=== PATIENT | female | born 1965 | race African-American/Black ===

== ENCOUNTER 2016-07-10 12:28 | Inpatient (IN) ==
[2016-07-10] MEDS ORDERED: ONDANSETRON 4 MG/2 ML VIAL IV STA (13:16)
[2016-07-10] MEDS ORDERED: ASPIRIN 325 MG TABLET PO STA (13:16)
[2016-07-10] MEDS ORDERED: ALBUTEROL/IPRATROPIUM 3 ML NEB RESP TX STA (13:16)
[2016-07-10 13:29] LABS: Basophils % 0.5 % (0.0-0.8); Eosinophils # 0.5 10*3/uL (0.0-0.87); Eosinophils % 8.1 % (0.00-10.9); Hematocrit 44.2 VOL% (35.7-47.0); Hemoglobin 15.4 GM/DL (12.0-16.0); Immature Granulocytes % 0.3 %; Immature Granulocytes Absolute 0.02 #; Lymphocytes # 2.6 10*3/uL (1.4-4.0); Lymphocytes % 40.4 % (21.3-54.2); Mean Corpuscular HGB Conc 34.8 GM/DL (32-36); Mean Corpuscular Hemoglobin 29 PG (27-34); Mean Platelet Volume 11.6 FL (9.6-12.0); Monocytes # 0.7 10*3/uL (0.11-0.8); Monocytes % 11.2 % (1.7-12.7); Neutrophils # 2.6 10*3/uL (1.4-7.4); Neutrophils % 39.5 % (38.7-73.9); Platelet Count 224 10*3/uL (130-400); Red Blood Count 5.26 10*6/uL (3.8-5.5); Red Cell Distribution Width 12.7 % (9.3-17.3); White Blood Count 6.5 10*3/uL (4.5-13.71)
--- NOTE | 2016-07-10 13:31 | EKG Report ---
Stationary ECG Study [facility] ER Test Date: 07/10/2016 1:30:01 PM Pat Name: TRISTIN CARRILLO Department: Room: Gender: F Master Carpenter: KAREN : 1965 Requested by: Richmond Smith Order Number: [id number] Reading MD: BERNARD NIXON Intervals [place] Rate: 87 P: 58 [place]: 152 QRS: 20 QRSD: 70 T: 53 QT: 371 QTc: 416 Interpretive Statements SINUS RHYTHM LOW QRS VOLTAGE IN PRECORDIAL LEADS Electronically Signed On 07-12-16 09:41:22 CLINICAL DATA SPECIALIST by BERNARD NIXON [id number]
--- NOTE | 2016-07-10 13:34 | XRay Report ---
Referring Physician: Richmond Lorenzana Exam: XR chest 1V portable Date: July 10, 2016 at 1:06 PM Reason: Chest pain Comparison: Chest 2 views January 10, 2015 Findings: The cardiac silhouette is upper normal in size. No focal consolidation, pneumothorax or pleural effusion is identified. No acute osseous process is seen. Impression: No acute cardiopulmonary process is identified. PROCEDURE INTERPRETED AT [facility] DEPARTMENT OF RADIOLOGY Final Report Signed by: Dr. Lincoln Camarillo
[2016-07-10] MEDS ORDERED: ONDANSETRON 4 MG/2 ML VIAL ONE (13:48)
[2016-07-10] MEDS ORDERED: ASPIRIN 325 MG TABLET ONE (13:48)
[2016-07-10 13:56] LABS: Albumin 3.8 G/DL (3.4-5.0); Bilirubin,Total 0.7 MG/DL (0.2-1.0); Calcium 9.6 MG/DL (8.5-10.1); Magnesium 1.8 MG/DL (1.8-2.4); Potassium 4.3 MMOL/L (3.5-5.1)
[2016-07-10] MEDS ORDERED: ENOXAPARIN 100 MG/ML SYRINGE SUBCUT STA (14:20)
--- NOTE | 2016-07-10 14:30 | Emergency Department Note ---
Daniel Wilcox Gwan, am scribing for, and in the presence of, Richmond Lorenzana MD 13:23. Salomón Wilcox Phillip K, MD, personally performed the services described in this documentation, ascribed by Rick Sanchez in my presence, and it is both accurate and complete 430 . 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 Denies radiation and nasuea. 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 Her associated sxs have been dizziness, SOB, pain in bilateral calf and cough. Patient continued to note that her right arm is weak. Family stated that pt was walking around at work when onset of sxs began. She continued to say that the last time this happened was last week. Her last NML time was yesterday. Patient confirmed that her pain is worsened with exertion, that she is followed by Dr. Lucio Campos, that she smokes cigarettes and that her father has heart disease. Nurses note that pt sat 97 and that pt has had a productive cough of thick mucous. No other problems/complaints reported in ED. Onset (ago): minute(s) Consistency: constant Severity: moderate Allergies/Adverse Reactions: Allergies Allergy/AdvReac Type Severity Reaction Status Date / Time No Known Allergies Allergy Unverified 01/10/15 14:31 Home Medications: Home Medications Medication Instructions Recorded Confirmed Type Lisinopril 10 mg PO DAILY 07/10/16 07/10/16 History hydroCHLOROthiazide 12.5 mg PO DAILY 07/10/16 07/10/16 History [Hydrochlorothiazide] Review of System - Review of System 12 point system: reviewed and no additional remarkable complaints except as stated - Review of System Constitutional: Present: as per HPI, other (dizziness) Respiratory: Present: as per HPI Cardiovascular: Present: as per HPI, chest pain Medical,Surgical,& Family Hx - Medical History Cardio: History of: Hypertension Respiratory: History of: Asthma - Social History Smoking Status: Unknown if ever smoked Frequency of Alcohol Use: Unknown Type of Drug Use: Unknown Exam Vital Signs: Vital Signs Temperature 98 F 07/10/16 12:29 Pulse Rate 89 07/10/16 13:38 Respiratory Rate 34 H 07/10/16 13:38 Blood Pressure 166/103 07/10/16 12:29 O2 Sat by Pulse Oximetry 100 07/10/16 13:38 - General General appearance: alert, in distress - Head Head exam: Present: atraumatic, normocephalic - Eye Eye exam: Present: normal appearance, PERRL, EOMI - ENT ENT exam: Present: normal oropharynx, mucous membranes moist, TM's normal bilaterally, normal external ear exam - Neck Neck exam: Present: full ROM. Absent: lymphadenopathy, thyromegaly - Chest Chest inspection: Present: symmetric chest wall rise. Absent: tenderness - Respiratory Respiratory exam: Present: wheezes (Expiratory in front) - Cardiovascular Cardiovascular exam: Present: regular rate, normal rhythm, normal heart sounds. Absent: murmur, rubs, gallop - Abdominal Exam Abdominal exam: Present: soft, normal bowel sounds. Absent: distention, tenderness, guarding - Extremities Exam Extremities exam: Present: full ROM, calf tenderness - Back Exam Back exam: Present: full ROM. Absent: tenderness - Neurological Exam Neurological exam: Present: alert, oriented X3, CN II-XII intact - Skin Skin exam: Present: warm, dry, intact, normal color Course Course Narrative: Patient discussed with Dr. Ledbetter who will admit for further evaluation. Patient continued to be pain-free however her troponins are mildly elevated. Patient does have some risk factors with a family history, hypertension, and is a smoker. Results - Labs CBC & BMP: 07/10/16 13:20 07/10/16 13:20 Lab Results: I have reviewed the patients labs Labs: Laboratory Tests 07/10/16 13:20 WBC 6.5 RBC 5.26 Hgb 15.4 Hct 44.2 MCV 84.0 L Plt Count 224 Laboratory Tests 07/10/16 07/10/16 13:20 13:20 D-Dimer, Quantitative <= 0.5 Sodium 143 Potassium 4.3 Chloride 109 H Carbon Dioxide 22 Anion Gap 16.3 H BUN 6 L Creatinine 0.80 AST 51 H Laboratory Tests 07/10/16 07/10/16 13:20 13:20 Troponin I 0.061 H B-Natriuretic Peptide 14 - EKG EKG results: interpreted by ERMD, sinus rhythm (no obvious ST elevation. Lots of artifact.) - Diagnostic Findings Procedure: Chest x-ray: report reviewed by me (No acute cardiopulmonary process is identified.) Disposition Clinical Impression: Chest pain, possible non-ST elevation [place], Hypertension Case discussed with: patient Disposition: Still a Patient Condition: Guarded Additional Instructions: Admit to Dr. Ledbetter
[2016-07-10] MEDS ORDERED: ENOXAPARIN 100 MG/ML SYRINGE SUBCUT ONE (14:37)
[2016-07-10] MEDS ORDERED: ONDANSETRON 4 MG/2 ML VIAL IV PRN (15:21)
[2016-07-10] MEDS ORDERED: DOCUSATE SODIUM 100 MG CAPSULE PO PRN (15:21)
[2016-07-10] MEDS ORDERED: MAGNESIUM SULF RIDER 2 GM in PREMIX 1 EACH IV PRN (15:21)
[2016-07-10] MEDS ORDERED: MAGNESIUM SULF RIDER 4 GM in PREMIX 1 EACH IV PRN (15:21)
[2016-07-10] MEDS ORDERED: ACETAMINOPHEN 325 MG TABLET PO PRN (15:21)
[2016-07-10] MEDS ORDERED: ZALEPLON 5 MG CAPSULE PO PRN (15:21)
[2016-07-10] MEDS ORDERED: guaiFENesin/DM ER 600-30 MG TABLET PO PRN (15:21)
--- NOTE | 2016-07-10 15:51 | Cardiology History & Physical ---
Assessment and Plan (1) Chest pain Status: Acute Assessment and plan: In general, her symptoms appear atypical of cardiac disease, however her cardiac enzymes are mildly abnormal with a very minimally elevated troponin which seems to be nonspecific in this setting. We will cover her empirically with anticoagulation, aspirin. We will further risk stratify her with echo and fasting lipid profile. Depending on the trend of her enzymes and her clinical evolution we will proceed with stress testing in the morning or heart catheterization depending on which appears to be indicated. Current Visit: Yes (2) Hypertension Status: Chronic Assessment and plan: We will adjust her antihypertensive regimen as necessary. Current Visit: Yes (3) Bronchitis Status: Acute Assessment and plan: We will treat her acutely with Zithromax. Current Visit: Yes (4) Tobacco abuse Status: Chronic Assessment and plan: The merits and techniques of cessation have been addressed. Current Visit: Yes (5) Thyromegaly Status: Acute Assessment and plan: We will check thyroid studies and a thyroid ultrasound. Current Visit: Yes History of Present Illness Chief complaint: sob History of present illness: The patient is evaluated urgently in the emergency room. Ms. Drake is a 50 year old female without a prior cardiac history. Risk factors are significant for hypertension, family history of coronary disease and tobacco use. She came to the emergency room with complaints of feeling weak and shortness of breath. She reports a 2 day history of wheezing, coughing up sputum productive of greenish and yellow sputum, with associated shortness of breath. Today, while at work she experienced a weak spell. This was associated with a chest pressure in her upper chest. This pressure radiated into her bilateral arms and up into the back of her neck, and was ongoing until she got to the emergency room. She feels like the nitroglycerin has helped her symptoms. In retrospect, she has noted a decline in her exercise tolerance with worsening dyspnea on exertion over the past several months. She does not usually get any chest discomfort. She has had some ongoing intermittent right arm numbness and tingling and discomfort, but this is not necessarily exertional. Her blood pressure is high upon arrival to the emergency room, and she does not regularly check this at home. She does not have palpitations, orthopnea, lower extremity edema. Her dad, Josh Camarillo was a patient of ours, has . She has not had any fevers or chills. She denies any melena, history of GI bleeding, bright red blood per rectum. She has no contraindication to dual antiplatelet therapy. Home Medications Medication Instructions Recorded Confirmed Type Lisinopril 10 mg PO DAILY 07/10/16 07/10/16 History hydroCHLOROthiazide 12.5 mg PO DAILY 07/10/16 07/10/16 History [Hydrochlorothiazide] Allergies Allergy/AdvReac Type Severity Reaction Status Date / Time No Known Allergies Allergy Unverified 01/10/15 14:31 12 point system: reviewed and no additional remarkable complaints except as stated Review of systems: As per the history of present illness otherwise negative in detail. Medical,Surgical,& Family Hx - Medical History Cardio: History of: Hypertension Respiratory: History of: Asthma - Social History Smoking Status: Unknown if ever smoked Frequency of Alcohol Use: Unknown Type of Drug Use: Unknown Functional capacity: independent ambulation Cardiology Physical Exam - Constitutional Vitals: Vital Signs Temp Pulse Resp BP Pulse Ox 98 F 89 26 H 157/85 100 07/10/16 12:29 07/10/16 14:00 07/10/16 14:00 07/10/16 14:00 07/10/16 14:00 Intake and Output 07/09/16 07/10/16 07/10/16 23:59 07:59 15:59 Other: Weight 95.254 kg Patient Weight 07/10/16 23:59 Weight 95.254 kg Exam: General appearance: normal weight, no acute distress - Head Head exam: Present: normal inspection, normocephalic, atraumatic. Absent: hematoma, laceration - Eye Eye exam: Present: EOMI. Absent: conjunctival injection, nystagmus, periorbital swelling, scleral icterus, laceration to eyelids Pupils: Present: PERRL. Absent: constricted, dilated, fixed, irregular, unequal - ENT ENT exam: Present: normal exam, normal external ear exam - Neck Neck exam: Present: Left thyroid lobular enlargement and tenderness to palpation. Absent: lymphadenopathy, meningismus, tenderness - Respiratory Respiratory exam: Present: clear to auscultation bilaterally. Absent: accessory muscle use, chest wall tenderness - Cardiovascular Cardiovascular exam: Present: regular rate and rhythm. Absent: carotid bruit, gallop, JVD, rubs - GI/Abdominal GI/Abdominal exam: Present: normal bowel sounds, soft. Absent: distended, firm , guarding, hernia, mass, tenderness, rebound. - Extremities Exam Extremities exam: Present: normal inspection, normal capillary refill. Absent: calf tenderness, edema - Back Exam Back exam: Present: normal inspection. Absent: muscle spasm, vertebral tenderness - Neurological Exam Neurological exam: Present: alert, oriented X3, grossly intact without resting or intention tremor - Psychiatric Psychiatric exam: Present: normal affect, normal mood - Skin Skin exam: Present: normal color, warm, dry, intact. Absent: cyanosis, diaphoretic, rash, urticaria Result/EKG - Labs CBC & BMP: 07/10/16 13:20 07/10/16 13:20 Lab Results: I have reviewed the past 24 hour labs Labs: Laboratory Results - last 24 hr 07/10/16 07/10/16 07/10/16 13:20 13:20 13:20 WBC RBC Hgb Hct MCV MCH MCHC RDW Plt Count MPV Neut % (Auto) Lymph % (Auto) Dawson % (Auto) Eos % (Auto) Baso % (Auto) Neut # (Auto) Lymph # (Auto) Dawson # (Auto) Eos # (Auto) Baso # (Auto) Immature Gran % Nucleated RBC % Immature Gran # Nucleated RBCs # D-Dimer, Quantitative <= 0.5 Sodium 143 Potassium 4.3 Chloride 109 H Carbon Dioxide 22 Anion Gap 16.3 H BUN 6 L Creatinine 0.80 GFR Calculation 115 BUN/Creatinine Ratio 7.00 Glucose 91 Calculated Osmolality 282.0 Calcium 9.6 Magnesium 1.8 Total Bilirubin 0.70 AST 51 H ALT 56 Alkaline Phosphatase 98 Troponin I B-Natriuretic Peptide 14 Total Protein 7.0 Albumin 3.8 Globulin 3.2 Albumin/Globulin Ratio 1.1 07/10/16 07/10/16 13:20 13:20 WBC 6.5 RBC 5.26 Hgb 15.4 Hct 44.2 MCV 84.0 L MCH 29 MCHC 34.8 RDW 12.7 Plt Count 224 MPV 11.6 Neut % (Auto) 39.5 Lymph % (Auto) 40.4 Dawson % (Auto) 11.2 Eos % (Auto) 8.1 Baso % (Auto) 0.5 Neut # (Auto) 2.6 Lymph # (Auto) 2.6 Dawson # (Auto) 0.7 Eos # (Auto) 0.5 Baso # (Auto) 0.0 Immature Gran % 0.3 Nucleated RBC % 0.0 Immature Gran # 0.02 Nucleated RBCs # 0.00 D-Dimer, Quantitative Sodium Potassium Chloride Carbon Dioxide Anion Gap BUN Creatinine GFR Calculation BUN/Creatinine Ratio Glucose Calculated Osmolality Calcium Magnesium Total Bilirubin AST ALT Alkaline Phosphatase Troponin I 0.061 H B-Natriuretic Peptide Total Protein Albumin Globulin Albumin/Globulin Ratio - Diagnostic Findings Procedure: Chest x-ray: report reviewed by me - EKG EKG results: interpreted by me, sinus rhythm Quality Measures - VTE Contraindication to Pharmacological VTE Prophylaxis: Already on Theraputic Agent , No Prophylaxis Needed
--- NOTE | 2016-07-10 16:20 | Ultrasound Report ---
Exam: Thyroid sonogram Date: 07/10/2016 3:25 PM Indication: Thyromegaly Comparison: None Findings: Diffuse inhomogeneity throughout the gland Right Lobe:4.3 x 2 x 1.5 cm. No focal mass lesions Left Lobe:3.9 x 2.1 x 1.7 cm. No focal mass lesions Isthmus:5 mm no focal mass lesions Impression: Diffuse inhomogeneity with mild thyroid enlargement without focal nodules clearly seen Ultrasound images were stored and captured The Ultrasound images were captured and stored. PROCEDURE INTERPRETED AT [facility] DEPARTMENT OF RADIOLOGY Final Report Signed by: Dr. Clayton Vaz
[2016-07-10] MEDS ORDERED: AZITHROMYCIN 250 MG TABLET PO ONE (17:30)
[2016-07-10] MEDS: PANTOPRAZOLE 40 MG TABLET PO SCH (17:33)
[2016-07-11 05:28] LABS: Basophils % 0.6 % (0.0-0.8); Eosinophils # 0.6 10*3/uL (0.0-0.87); Eosinophils % 10.6 % (0.00-10.9); Hematocrit 39.8 VOL% (35.7-47.0); Hemoglobin 13.3 GM/DL (12.0-16.0); Immature Granulocytes % 0.2 %; Immature Granulocytes Absolute 0.01 #; Lymphocytes # 1.5 10*3/uL (1.4-4.0); Lymphocytes % 29.2 % (21.3-54.2); Mean Corpuscular HGB Conc 33.4 GM/DL (32-36); Mean Corpuscular Hemoglobin 28 PG (27-34); Mean Corpuscular Volume 84.9 FL (87-102); Mean Platelet Volume 12.2 FL (9.6-12.0); Monocytes # 0.7 10*3/uL (0.11-0.8); Monocytes % 13.1 % (1.7-12.7); Neutrophils # 2.4 10*3/uL (1.4-7.4); Neutrophils % 46.3 % (38.7-73.9); Platelet Count 183 10*3/uL (130-400); Red Blood Count 4.69 10*6/uL (3.8-5.5); Red Cell Distribution Width 12.7 % (9.3-17.3); White Blood Count 5.2 10*3/uL (4.5-13.71)
[2016-07-11 06:05] LABS: Albumin 3.3 G/DL (3.4-5.0); Bilirubin,Total 0.8 MG/DL (0.2-1.0); Osmolality,Calculated 283.8 MOS/KG (273-304); Potassium 4.4 MMOL/L (3.5-5.1); Risk Ratio 3.05; Total Protein 6.1 G/DL (6.4-8.3)
[2016-07-11 06:13] LABS: Free T4 (Free Thyroxine) 1.79 NG/DL (0.76-1.46); Thyroid Stimulating Hormone < 0.005 uIU/ml (0.358-3.74)
[2016-07-11] MEDS ORDERED: ALBUTEROL/IPRATROPIUM 3 ML NEB RESP TX ONE (07:29)
[2016-07-11] MEDS ORDERED: methylPREDNISolone SOD SUC 125 MG/2 ML VIAL IV ONE (07:30)
--- NOTE | 2016-07-11 07:37 | EKG Report ---
Stationary ECG Study [facility] Test Date: 07/11/2016 7:35:47 AM Pat Name: TRISTIN CARRILLO Department: Room: 286 Gender: F Company Controller: ADELAIDE : 1965 Requested by: Triston Merino Order Number: [id number] Reading MD: TRISTON MERINO Intervals [place] Rate: 68 P: 38 [place]: 184 QRS: 28 QRSD: 59 T: 70 QT: 406 QTc: 424 Interpretive Statements SINUS RHYTHM Electronically Signed On 07-12-16 09:49:05 TALENT ANALYST by TRISTON MERINO [email or web address]
[2016-07-11] MEDS: PANTOPRAZOLE 40 MG TABLET PO SCH (08:44)
[2016-07-11] MEDS: LISINOPRIL 10 MG TABLET PO SCH (08:44)
[2016-07-11] MEDS: AZITHROMYCIN 250 MG TABLET PO SCH (08:44)
[2016-07-11] MEDS: hydroCHLOROthiazide 12.5 MG CAPSULE PO SCH (08:44)
[2016-07-11 09:45] LABS: Apearance,Urine Slightly Hazy (Clear); Bacteria,Urine Occasional /HPF (Few); Bilirubin,Urine Negative (Negative); Blood, Urine Negative (Negative); Glucose,Urine (UA) Negative (Negative); Hyaline Casts,Urine 1 /LPF (0-3); Ketones,Urine Negative (Negative); Mucus,Urine Occasional /LPF (Occasional); Nitrite,Urine Negative (Negative); Protein,Urine Negative; RBC,Urine 1 /HPF (0-4); Squamous Epithelial Cell,Urine Occasional /HPF (0-10); Urine Color Yellow (Yellow); Urine Urobilinogen < 2.0 EU/DL (0.2-1.0); WBC,Urine 1 /HPF (0-6)
[2016-07-11] MEDS ORDERED: ALBUTEROL/IPRATROPIUM 3 ML NEB RESP TX PRN (11:19)
--- NOTE | 2016-07-11 11:35 | EKG Report ---
Stationary ECG Study [facility] ER Test Date: 07/10/2016 12:35:43 PM Pat Name: TRISTIN CARRILLO Department: Room: 286 Gender: F Chef Broiler Or Fry: Edvin Westbrook : 1965 Requested by: Richmond Smith Order Number: [id number] Reading MD: BERNARD NIXON Intervals [place] Rate: 99 P: 63 [place]: 161 QRS: 25 QRSD: 61 T: 44 QT: 327 QTc: 383 Interpretive Statements SINUS RHYTHM LOW QRS VOLTAGE IN CHEST LEADS Electronically Signed On 07-12-16 09:40:19 VOLUNTEER SERVICES SUPERVISOR by BERNARD NIXON [email or web address]
--- NOTE | 2016-07-11 13:24 | Hospitalist Consult Note ---
Assessment and Plan - Time spent with patient Time spent with patient: Greater than 30 minutes (due to assessment, plan and documentation) (1) Acute asthma exacerbation Status: Acute Assessment and plan: o2/2-3 L duonebs q4 hrs solumedrol 62.5 mg IV BID Consult pulmonary- asthma mgmt; she has not been seen by a customer service correspondence clerk in years and is on no maintenance medications. Current Visit: Yes (2) Hyperthyroidism Status: Acute Assessment and plan: TSH < 0.005, free T3 1.79 U/s mild thyroid enlargement started on metoprolol 25 mg po bid referral to [facility] ([phone] telephone) Current Visit: Yes (3) Bronchitis Status: Acute Assessment and plan: she has been on zithromax for acute bronchitis. Current Visit: Yes (4) Chest pain Status: Acute Assessment and plan: cardiology is seeing- work up is on hold at this time d/t thyroid problems. Current Visit: Yes (5) Thyromegaly Status: Acute Current Visit: Yes (6) Hypertension Status: Chronic Assessment and plan: home meds have been continued. Current Visit: Yes (7) Tobacco abuse Status: Chronic Assessment and plan: smoking cessation has been discussed. Current Visit: Yes History of Present Illness - Data of Consult Patient: new to practice Consult date: 07/11/16 Requesting Physician: Rosangela Ledbetter - Consult Narrative Reason for consult: hyperthyroidism, thyroiditis. History of present illness: Ms. Drake is a 50 year old female who was admitted for chest pain, HTN, Bronchitis, and was found to have thyromegaly. We were asked to see in consultation by Dr. Rosangela Ledbetter for management of her hyperthyroidism. She denies ever being told that she has thyroid problems. Her TSH was < 0.005 and free T3 elevated at 1.79. Ultrasound showed " "diffuse inhomogenity with mild thyroid enlargement". Her thyroid is very tender to palpation and enlarged. Her pulse has been in the 80's. Upon my arrival to the room, Ms. Drake looks quite ill. She begins to cough very forcefully and sounds very tight c/w asthma attack. She had an episode similar to this this morning, and was given a one time duoneb and one time dose of 62.5mg solu-medrol IV. I have ordered Solumedrol BID, duonebs q 4 hrs PRN for wheeze/SOB, and pulmonary consultation. She states that she does have asthma, and that she has not had a rescue inhaler for about a year now and is on no maintenance medications or pulmonary follow up. She has been started on Metoprolol 25 mg PO BID, and has been referred to Endocrinology in [place] for further testing. I have discussed her case with MADHURI Lewis, in regards to her cardiac workup, and some of her workup is on hold due to her thyroid issues. Hope to get her an appointment with Endo in the next week, or earlier if able. Further plan and addendum to follow by Dr. Brigitte Gallego. CC: Rosangela Ledbetter, - Home Medications and Allergies Home Medications: Home Medications Medication Instructions Recorded Confirmed Type Lisinopril 10 mg PO DAILY 07/10/16 07/10/16 History hydroCHLOROthiazide 12.5 mg PO DAILY 07/10/16 07/10/16 History [Hydrochlorothiazide] Allergies/Adverse Reactions: Allergies Allergy/AdvReac Type Severity Reaction Status Date / Time No Known Allergies Allergy Verified 07/10/16 17:20 Medical,Surgical,& Family Hx - Medical History Cardio: History of: Hypertension Endocrine: History of: Thyroid Disorder Respiratory: History of: Asthma - Family History Family History: Reports;: Family Cancer, Family Diabetes, Family Hypertension - Social History Smoking Status: Current every day smoker Frequency of Alcohol Use: Frequently Type of Drug Use: None, Unknown Marital Status: Unknown Lives With:: Alone Functional capacity: independent ambulation - Constitutional Constitutional: Absent: chills, fever(s) - EENT Eyes: Absent: blurry vision Ears: Absent: decreased hearing Nose, mouth and throat: Absent: dysphagia, headache(s) - Cardiovascular Cardiovascular: Present: dyspnea, palpitations - Respiratory Respiratory: Present: cough, dyspnea, dyspnea on exertion, wheezing - Gastrointestinal Gastrointestinal: Absent: abdominal pain, nausea, vomiting - Genitourinary Genitourinary: Absent: dysuria, hematuria - Musculoskeletal Musculoskeletal: Absent: back pain, joint swelling - Neurological Neurological: Absent: confusion, dizziness - Psychiatric Psychiatric: Present: anxiety. Absent: confusion, depression - Endocrine Endocrine: Present: heat intolerance. Absent: fatigue - Hematologic/Lymphatic Hematologic/Lymphatic: Absent: easy bleeding Exam - Constitutional Vitals: Period Temp Pulse Resp BP Sys/Kat Pulse Ox Last 24 Hr 97.5 F-98.6 F 71-97 16-23 120-187/77-96 90-100 General appearance: mild distress, over weight - Head Head exam: Present: normal inspection, normocephalic - Eye Eye exam: Present: EOMI. Absent: scleral icterus Pupils: Present: SHAYNA, normal accommodation - ENT ENT exam: Present: normal exam, normal oropharynx - Neck Neck exam: Present: normal inspection, thyromegaly. Absent: lymphadenopathy - Respiratory Respiratory exam: Present: accessory muscle use, wheezes - Cardiovascular Cardiovascular exam: Present: regular rate and rhythm - GI/Abdominal GI/Abdominal exam: Present: normal bowel sounds, soft. Absent: tenderness - Extremities Exam Extremities exam: Present: normal inspection. Absent: edema - Back Exam Back exam: Present: normal inspection. Absent: muscle spasm - Neurological Exam Neurological exam: Present: alert, oriented X3 - Psychiatric Psychiatric exam: Present: agitated - Skin Skin exam: Present: normal color, warm, dry, intact Results - Labs CBC & BMP: 07/11/16 04:38 07/11/16 04:39 Lab Results: I have reviewed the past 24 hour labs Quality Measures - VTE Contraindication to Pharmacological VTE Prophylaxis: Already on Theraputic Agent , No Prophylaxis Needed
--- NOTE | 2016-07-11 13:55 | Cardiology Progress Note ---
<Janet Bond E - Last Filed: 07/11/16 13:50> Assessment and Plan - Time spent with patient Time spent with patient: Greater than 30 minutes (1) Chest pain Status: Acute Assessment and plan: She is having no active chest pain at this time, we will continue to monitor CIE Current Visit: Yes (2) Hypertension Status: Chronic Assessment and plan: WIll continue to address accordingly. Current Visit: Yes (3) Bronchitis Status: Acute Assessment and plan: Improving Current Visit: Yes (4) Tobacco abuse Status: Chronic Assessment and plan: Greater than 5 minutes was spend discussing the merits of tobacco cessation Current Visit: Yes (5) Acute asthma exacerbation Status: Acute Assessment and plan: Dr. Blackwood has been consulted. Current Visit: Yes (6) Hyperthyroidism Status: Acute Assessment and plan: Hopefully, getting appointment with specialist in [facility] Current Visit: Yes Cardiology - PN: Subj Interval history: Ms. Drake is a 50 year old female without a prior cardiac history. Risk factors are significant for hypertension, family history of coronary disease and tobacco use. She came to the emergency room yesterday with complaints of feeling weak and shortness of breath. She reported a 2 day history of wheezing , coughing up sputum productive of greenish and yellow sputum, with associated shortness of breath. Upon arrival to the emergency department she had complaints of chest pressure in her upper chest which radiated down into her bilateral upper arms and into the back of her neck. Her troponin was minimally elevated. Her thyroid was significantly abnormal and she is thought to be hyperthyroid with possible thyroiditis as she has a very tender to touch neck. This morning, she's had an episode of severe asthma requiring IV Solu-Medrol and breathing treatments. Dr. Blackwood, vendor quality supervisor, has been consulted. She was scheduled for further workup today to include a stress test versus cardiac catheterization due to her complaints of chest pain. However, this is been put on hold as we get her thyroid managed. Unable to safely undergo cardiac catheterization as there is the possiblity of thyroid storm. Due to her severe asthma, we are avoiding stress testing with exercise. She's having no chest pain at this time. We appreciate hospitalist assistance in management of her thyroid. I understand they're working diligently to get her seen by an boatbuilder apprentice wood in [place], [place] as soon as available. Once we get her thyroid condition improved, we will further investigate cardiac issues if possible. Fortunately, she is chest pain-free at this time and her troponin has been minimally changed since admission. Exam (Progress Note) - Constitutional Vitals: Period Temp Pulse Resp BP Sys/Kat Pulse Ox Last 24 Hr 97.5 F-98.6 F 71-97 16-23 120-187/77-96 90-100 Exam: General: Appears well with no apparent distress. Pleasant and cooperative. Appears comfortable. HEENT: PERRL, normocephalic, atraumatic. Mucous membranes moist. No jaundice noted. Conjunctiva moist and clear, sclerae anicteric Neck: No JVD/HJR, enlarged neck bilaterally, No carotid bruit appreciated Cardiac: Regular rate and rhythm. No murmur rub or gallop. Lungs: Mild end expiratory wheeze noted posteriorly. No accessory muscle use to assist the respiratory pattern. Using oxygen intermittently. Abdomen: Soft, bowel sounds normoactive. Nontender and nondistended. No abdominal bruit or thrill noted. No masses noted. Musculoskeletal: No fluid collection. Decreased range of motion is noted. Extremities: No clubbing, cyanosis noted. No edema noted. Upper extremity pulses 2+. Lower extremity pulses 2+. Capillary refill less than 3 seconds. Skin: No unusual lesions or rashes. No skin breakdown appreciated. Neuro: Awake, alert and oriented 3. Moves all extremities well without hemiparesis or paralysis. No essential tremor is appreciated. Result/EKG - Labs CBC & BMP: 07/11/16 04:38 07/11/16 04:39 Lab Results: I have reviewed the past 24 hour labs Labs: Laboratory Results - last 24 hr 07/10/16 07/10/16 07/11/16 17:27 20:28 04:38 WBC 5.2 RBC 4.69 Hgb 13.3 D Hct 39.8 MCV 84.9 L MCH 28 MCHC 33.4 RDW 12.7 Plt Count 183 MPV 12.2 H Neut % (Auto) 46.3 Lymph % (Auto) 29.2 [place] % (Auto) 13.1 H Eos % (Auto) 10.6 Baso % (Auto) 0.6 Neut # (Auto) 2.4 Lymph # (Auto) 1.5 [place] # (Auto) 0.7 Eos # (Auto) 0.6 Baso # (Auto) 0.0 Immature Gran % 0.2 Nucleated RBC % 0.0 Immature Gran # 0.01 Nucleated RBCs # 0.00 Sodium Potassium Chloride Carbon Dioxide Anion Gap BUN Creatinine GFR Calculation BUN/Creatinine Ratio Glucose Calculated Osmolality Calcium Total Bilirubin AST ALT Alkaline Phosphatase Troponin I 0.076 H D 0.084 H Total Protein Albumin Globulin Albumin/Globulin Ratio Triglycerides Cholesterol LDL Cholesterol VLDL Cholesterol HDL Cholesterol Heart Disease Risk Ratio Free T4 TSH 3rd Generation Urine Color Urine Appearance Urine pH Ur Specific Daisy Urine Protein Urine Glucose (UA) Urine Ketones Urine Blood Urine Nitrate Urine Bilirubin Urine Urobilinogen Urine Leukocytes Urine RBC Urine WBC Ur Squamous Epith Cells Urine Bacteria Hyaline Casts Urine Mucus Ur Culture Indicated? 07/11/16 07/11/16 07/11/16 04:39 04:39 08:47 WBC RBC Hgb Hct MCV MCH MCHC RDW Plt Count MPV Neut % (Auto) Lymph % (Auto) [place] % (Auto) Eos % (Auto) Baso % (Auto) Neut # (Auto) Lymph # (Auto) [place] # (Auto) Eos # (Auto) Baso # (Auto) Immature Gran % Nucleated RBC % Immature Gran # Nucleated RBCs # Sodium 144 Potassium 4.4 Chloride 109 H Carbon Dioxide 25 Anion Gap 14.4 BUN 6 L Creatinine 0.70 GFR Calculation 133 BUN/Creatinine Ratio 8.00 Glucose 104 Calculated Osmolality 283.8 Calcium 9.0 Total Bilirubin 0.80 AST 23 ALT 41 Alkaline Phosphatase 81 Troponin I Total Protein 6.1 L Albumin 3.3 L Globulin 2.8 Albumin/Globulin Ratio 1.1 Triglycerides 160 H Cholesterol 125 LDL Cholesterol 60.0 VLDL Cholesterol 32.0 HDL Cholesterol 41 Heart Disease Risk Ratio 3.05 Free T4 1.79 H TSH 3rd Generation < 0.005 L Urine Color Yellow Urine Appearance Slightly hazy Urine pH 5.0 Ur Specific Daisy 1.020 Urine Protein Negative Urine Glucose (UA) Negative Urine Ketones Negative Urine Blood Negative Urine Nitrate Negative Urine Bilirubin Negative Urine Urobilinogen < 2.0 H Urine Leukocytes Negative Urine RBC 1 Urine WBC 1 Ur Squamous Epith Cells Occasional Urine Bacteria Occasional Hyaline Casts 1 Urine Mucus Occasional Ur Culture Indicated? Not indicated - Diagnostic Findings Procedure: Chest x-ray: report reviewed by me, Ultrasound: report reviewed by me - EKG EKG results: interpreted by me EKG shows: sinus rhythm Quality Measures - VTE Contraindication to Pharmacological VTE Prophylaxis: Already on Theraputic Agent , No Prophylaxis Needed <Rosangela Ledbetter - Last Filed: 07/11/16 20:13> Assessment and Plan (1) Chest pain Status: Acute Current Visit: Yes (2) Hypertension Status: Chronic Current Visit: Yes (3) Bronchitis Status: Acute Current Visit: Yes (4) Tobacco abuse Status: Chronic Current Visit: Yes (5) Thyromegaly Status: Acute Current Visit: Yes Cardiology - PN: Subj Interval history: I personally interviewed and examined the patient, reviewed the chart and discussed medical decision-making with practitioner Ronda. I have read this note and agree with the findings as documented herein. Exam (Progress Note) - Constitutional Vitals: Period Temp Pulse Resp BP Sys/Kat Pulse Ox Last 24 Hr 97.5 F-98.6 F 71-97 16-22 126-187/73-96 90-100 Result/EKG - Labs CBC & BMP: 07/11/16 04:38 07/11/16 04:39 Labs: Laboratory Results - last 24 hr 07/10/16 07/11/16 07/11/16 20:28 04:38 04:39 WBC 5.2 RBC 4.69 Hgb 13.3 D Hct 39.8 MCV 84.9 L MCH 28 MCHC 33.4 RDW 12.7 Plt Count 183 MPV 12.2 H Neut % (Auto) 46.3 Lymph % (Auto) 29.2 [place] % (Auto) 13.1 H Eos % (Auto) 10.6 Baso % (Auto) 0.6 Neut # (Auto) 2.4 Lymph # (Auto) 1.5 [place] # (Auto) 0.7 Eos # (Auto) 0.6 Baso # (Auto) 0.0 Immature Gran % 0.2 Nucleated RBC % 0.0 Immature Gran # 0.01 Nucleated RBCs # 0.00 Sodium 144 Potassium 4.4 Chloride 109 H Carbon Dioxide 25 Anion Gap 14.4 BUN 6 L Creatinine 0.70 GFR Calculation 133 BUN/Creatinine Ratio 8.00 Glucose 104 Calculated Osmolality 283.8 Calcium 9.0 Total Bilirubin 0.80 AST 23 ALT 41 Alkaline Phosphatase 81 Troponin I 0.084 H Total Protein 6.1 L Albumin 3.3 L Globulin 2.8 Albumin/Globulin Ratio 1.1 Triglycerides 160 H Cholesterol 125 LDL Cholesterol 60.0 VLDL Cholesterol 32.0 HDL Cholesterol 41 Heart Disease Risk Ratio 3.05 Free T4 TSH 3rd Generation Urine Color Urine Appearance Urine pH Ur Specific Daisy Urine Protein Urine Glucose (UA) Urine Ketones Urine Blood Urine Nitrate Urine Bilirubin Urine Urobilinogen Urine Leukocytes Urine RBC Urine WBC Ur Squamous Epith Cells Urine Bacteria Hyaline Casts Urine Mucus Ur Culture Indicated? 07/11/16 07/11/16 04:39 08:47 WBC RBC Hgb Hct MCV MCH MCHC RDW Plt Count MPV Neut % (Auto) Lymph % (Auto) [place] % (Auto) Eos % (Auto) Baso % (Auto) Neut # (Auto) Lymph # (Auto) [place] # (Auto) Eos # (Auto) Baso # (Auto) Immature Gran % Nucleated RBC % Immature Gran # Nucleated RBCs # Sodium Potassium Chloride Carbon Dioxide Anion Gap BUN Creatinine GFR Calculation BUN/Creatinine Ratio Glucose Calculated Osmolality Calcium Total Bilirubin AST ALT Alkaline Phosphatase Troponin I Total Protein Albumin Globulin Albumin/Globulin Ratio Triglycerides Cholesterol LDL Cholesterol VLDL Cholesterol HDL Cholesterol Heart Disease Risk Ratio Free T4 1.79 H TSH 3rd Generation < 0.005 L Urine Color Yellow Urine Appearance Slightly hazy Urine pH 5.0 Ur Specific Daisy 1.020 Urine Protein Negative Urine Glucose (UA) Negative Urine Ketones Negative Urine Blood Negative Urine Nitrate Negative Urine Bilirubin Negative Urine Urobilinogen < 2.0 H Urine Leukocytes Negative Urine RBC 1 Urine WBC 1 Ur Squamous Epith Cells Occasional Urine Bacteria Occasional Hyaline Casts 1 Urine Mucus Occasional Ur Culture Indicated? Not indicated
[2016-07-11] MEDS ORDERED: ALBUTEROL 1.25 MG/3 ML NEB RESP TX PRN (16:45)
--- NOTE | 2016-07-11 16:48 | Pulmonology Consult Note ---
Assessment and Plan (1) Bronchitis Status: Acute Assessment and plan: Patient relates that she's been diagnosed as having chronic bronchitis. This is likely related to cigarette smoking. She's been advised she needs to stop. We will treat this with nebulized Atrovent. I do not want to use albuterol because of her hyperthyroidism. We can use Xopenex in its place. Solu-Medrol will help as well. Current Visit: Yes (2) Tobacco abuse Status: Chronic Assessment and plan: Patient has been strongly advised to stop smoking. Current Visit: Yes (3) Acute asthma exacerbation Status: Acute Assessment and plan: She is having some bronchospasm. I think she has both bronchitis and asthma. Treatment as per above. Current Visit: Yes (4) Hyperthyroidism Status: Acute Assessment and plan: Patient has a fine tremor. She has undergone cutting of the fourth nails. TSH is low and free T4 is high. Thyroid is enlarged on physical exam and by ultrasound. I do not see any eye signs. However I think she may well have Graves' disease. Endocrine we will need to see her. She is on low-dose beta nancy. This will need to be watched closely with her bronchospasm. Perhaps it would be best to put her on some anti-thyroid drugs now. We'll defer to the hospitalist service on that. Current Visit: Yes History of Present Illness Chief complaint: cough, wheezing History of present illness: Ms. Drake is a 50 year old female who is a long-time smoker that says she has chronic bronchitis. She came in with chest pain and was found to be hyperthyroid. She has had some wheezing and bronchospasm. She does have some soreness in her neck and tenderness over her thyroid. Her voice has been good. She's not been coughing up any phlegm and has not had fever. She does not know of any previous history of thyroid problems. She has an enlarged thyroid on ultrasound a low TSH and elevated free T4. Likely this is Graves' disease. Home Medications Medication Instructions Recorded Confirmed Type Lisinopril 10 mg PO DAILY 07/10/16 07/10/16 History hydroCHLOROthiazide 12.5 mg PO DAILY 07/10/16 07/10/16 History [Hydrochlorothiazide] Allergies Allergy/AdvReac Type Severity Reaction Status Date / Time No Known Allergies Allergy Verified 07/10/16 17:20 12 point system: reviewed and no additional remarkable complaints except as stated - Constitutional Constitutional: Present: fatigue, weight loss - Cardiovascular Cardiovascular: Present: dyspnea, dyspnea on exertion - Respiratory Respiratory: Present: cough, dyspnea, dyspnea on exertion, wheezing, change in phlegm color - Neurological Neurological: Present: tremor(s) Exam (Pulmonay) H&P - Constitutional Vitals: Period Temp Pulse Resp BP Sys/Kat Pulse Ox Last 24 Hr 97.5 F-98.6 F 71-97 16-23 120-187/73-96 90-100 Exam: She is alert oriented vital signs normal. Pulse is only 80. Pupils react to light. Throat is clear. Neck is supple. Thyroid is enlarged and slightly tender. No bruits. Chest reveals bilateral expiratory wheezes. Mild inspiratory wheezes over the upper chest anteriorly. Heart normal rate rhythm no murmurs no rubs no gallops. Abdomen soft nontender no masses. Bowel sounds present. Extremities she does have some felt like skin. No clubbing cyanosis or edema. There is under cutting of the fourth nail on both hands. Medical,Surgical,& Family Hx - Medical History Cardio: History of: Hypertension Endocrine: History of: Thyroid Disorder Respiratory: History of: Asthma - Family History Family History: Reports;: Family Cancer, Family Diabetes, Family Hypertension - Social History Smoking Status: Current every day smoker Frequency of Alcohol Use: Frequently Type of Drug Use: None, Unknown Results - Labs CBC & BMP: 07/11/16 04:38 07/11/16 04:39 Lab Results: I have reviewed the past 24 hour labs - Diagnostic Findings Procedure: Chest x-ray: image reviewed by me (chest x-ray is within normal limits.) Quality Measures - VTE Contraindication to Pharmacological VTE Prophylaxis: Already on Theraputic Agent , No Prophylaxis Needed
[2016-07-11] MEDS: IPRATROPIUM 500 MCG/2.5 ML NEB RESP TX SCH (20:16)
[2016-07-11] MEDS: METOPROLOL TARTRATE 25 MG TABLET PO SCH (21:07)
[2016-07-11] MEDS: methylPREDNISolone SOD SUC 125 MG/2 ML VIAL IV SCH (21:07)
--- NOTE | 2016-07-11 21:48 | ECHO Report ---
Concha Drake 07/11/2016 Exam Date: 10:53 Referring Physician: Lana Thao Technologist: ADRI Age: 50 Ht (in): Wt (lb): FExam [facility] Gender: Echo [id number]: Chest pain, unspecified, Weakness, Indications:Shortness of breath, Essential (primary) hypertension, Nicotine dependence, unspecified, uncomplicated BP: / HR: SinusRhythm: FairTechnical Quality: IMPRESSIONS Normal LV systolic and diastolic function, ejection fraction 55-60%. Mild left atrial enlargement. Mild mitral and tricuspid regurgitation. MEASUREMENTS (Male / Female) Normal Values 2D ECHO LV Diastolic Diameter PLAX 4.6 cm 4.2 - 5.9 / 3.9 - 5.3 cm LV Systolic Diameter PLAX 2.9 cm LV Fractional Shortening PLAX 36.2 % IVS Diastolic Thickness 1.0 cm 0.6 - 1.0 / 0.6 - 0.9 cm LVPW Diastolic Thickness 1.0 cm 0.6 - 1.0 / 0.6 - 0.9 cm RV Internal Dim ED PLAX 3.0 cm Aortic Root Diameter 2.9 cm LA Systolic Diameter LX 4.3 cm 3.0 - 4.0 / 2.7 - 3.8 cm DOPPLER TR Peak Velocity 259.0 cm/s TR Peak Gradient 26.8 mmHg FINDINGS Left Ventricle Normal left ventricular cavity size. Normal left ventricular wall thickness. Left ventricular ejection fraction is estimated at 60 %. Right Ventricle The right ventricle is normal in size and function. Right Atrium Normal size. Left Atrium Mildly enlarged. Mitral Valve Mildly thickened mitral valve with mild mitral regurgitation. Aortic Valve Morphologically normal aortic valve without significant sclerosis or stenosis. There is no aortic regurgitation. Tricuspid Valve Morphologically normal tricuspid valve. Trace to mild tricuspid valve regurgitation. Tricuspid regurgitation velocities suggest a PAP of 37 mmHg. Pulmonic Valve Morphologically normal pulmonic valve without significant stenosis. There is no pulmonic regurgitation. Pericardium Normal pericardium without effusion. Aorta Normal ascending aorta dimension. Rosangela Ledbetter MD (Electronically Signed) 11 July 2016 Final Date: 21:46
[2016-07-12] MEDS: IPRATROPIUM 500 MCG/2.5 ML NEB RESP TX SCH ×4 (02:08→19:20)
[2016-07-12 05:52] LABS: Hematocrit 40.6 VOL% (35.7-47.0); Hemoglobin 13.8 GM/DL (12.0-16.0); Immature Granulocytes % 0.5 %; Immature Granulocytes Absolute 0.07 #; Lymphocytes # 0.8 10*3/uL (1.4-4.0); Lymphocytes % 5.3 % (21.3-54.2); Mean Corpuscular Hemoglobin 29 PG (27-34); Mean Corpuscular Volume 83.9 FL (87-102); Monocytes # 0.7 10*3/uL (0.11-0.8); Monocytes % 4.5 % (1.7-12.7); Neutrophils # 13.7 10*3/uL (1.4-7.4); Neutrophils % 89.7 % (38.7-73.9); Platelet Count 224 10*3/uL (130-400); Red Blood Count 4.84 10*6/uL (3.8-5.5); Red Cell Distribution Width 12.5 % (9.3-17.3); White Blood Count 15.2 10*3/uL (4.5-13.71)
[2016-07-12 06:41] LABS: Calcium 9.7 MG/DL (8.5-10.1); Osmolality,Calculated 283.3 MOS/KG (273-304); Potassium 4.6 MMOL/L (3.5-5.1)
--- NOTE | 2016-07-12 07:27 | Pulmonology Progress Note ---
Pulmonary - PN: Subj Interval history: This 50-year-old black female has hyperthyroidism. Newly diagnosed. Also chronic smoker with probable chronic bronchitis. I do think she has a component of asthma. She is better on current medications. She's getting Solu- Medrol and antibiotics as well as Xopenex and Atrovent. She has been started on a low-dose of beta nancy for her hyperthyroid state. Also on methimazole. Defer to hospitalist service as far as management of hyperthyroidism. Probably can be changed to oral medications if needed for discharge in the next day or so. Would keep her on prednisone for about 5 days. Would use Xopenex and Atrovent rather than albuterol due to the tremors from her hyperthyroid. Exam (Progress Note) - Constitutional Vitals: Period Temp Pulse Resp BP Sys/Kat Pulse Ox Last 24 Hr 97.5 F-98.6 F 71-102 18-24 122-187/70-93 95-100 Exam: He is alert seems calmer. Vital signs are normal. Pulse around 80. Pupils react to light throat clear. Neck supple no bruits. Chest minimal inspiratory wheezes in the upper chest. This sounds more upper airway. She is not hoarse. I do not think she has upper airway obstruction however. Heart normal rate rhythm no murmurs abdomen soft no masses extremities no clubbing cyanosis edema. Again she has some velvety changes in her skin consistent with hyperthyroid. She has undercutting of the fourth nail on both hands. Results - Labs CBC & BMP: 07/12/16 05:41 07/12/16 05:41 Lab Results: I have reviewed the past 24 hour labs Assessment and Plan (1) Bronchitis Status: Acute Assessment and plan: Patient relates that she's been diagnosed as having chronic bronchitis. This is likely related to cigarette smoking. She's been advised she needs to stop. We will treat this with nebulized Atrovent. I do not want to use albuterol because of her hyperthyroidism. We can use Xopenex in its place. Solu-Medrol will help as well. 07/12/2016 acute on chronic bronchitis with bronchospasm. Can change to oral prednisone 40 mg daily for 5 days when ready for discharge. Current Visit: Yes (2) Tobacco abuse Status: Chronic Assessment and plan: Patient has been strongly advised to stop smoking. Current Visit: Yes (3) Acute asthma exacerbation Status: Acute Assessment and plan: She is having some bronchospasm. I think she has both bronchitis and asthma. Treatment as per above. 07/12/2016 I don't think she would do well with long-acting bronchodilator. Would use inhaled steroid alone as a controller. Current Visit: Yes (4) Hyperthyroidism Status: Acute Assessment and plan: Patient has a fine tremor. She has undergone cutting of the fourth nails. TSH is low and free T4 is high. Thyroid is enlarged on physical exam and by ultrasound. I do not see any eye signs. However I think she may well have Graves' disease. Endocrine we will need to see her. She is on low-dose beta nancy. This will need to be watched closely with her bronchospasm. Perhaps it would be best to put her on some anti-thyroid drugs now. We'll defer to the hospitalist service on that. 07/12/2016 patient on low-dose beta nancy plus methimazole. Plans are for her to go to an surgical services coordinator in [place] when that can be arranged. Current Visit: Yes
[2016-07-12] MEDS: hydroCHLOROthiazide 12.5 MG CAPSULE PO SCH (08:49)
[2016-07-12] MEDS: methIMAzole 5 MG TABLET PO SCH (08:49)
[2016-07-12] MEDS: LISINOPRIL 10 MG TABLET PO SCH (08:49)
[2016-07-12] MEDS: METOPROLOL TARTRATE 25 MG TABLET PO SCH (08:50)
[2016-07-12] MEDS: AZITHROMYCIN 250 MG TABLET PO SCH (08:50)
[2016-07-12] MEDS: PANTOPRAZOLE 40 MG TABLET PO SCH (08:50)
[2016-07-12] MEDS: BISACODYL 5 MG TABLET PO PRN (08:50)
[2016-07-12] MEDS: methylPREDNISolone SOD SUC 125 MG/2 ML VIAL IV SCH ×2 (09:00→21:26)
[2016-07-12] MEDS ORDERED: RACEPINEPHRINE 0.5 ML NEB RESP TX ONE (11:04)
--- NOTE | 2016-07-12 12:38 | CT Report ---
CT soft tissue neck wo con Indication: Shortness of breath, hyperthyroidism, stridor. CT NECK WITHOUT CONTRAST DLP: 313 mGy*cm Comparison: None Technique: Axial noncontrast CT images of the neck were obtained. Findings: Normal size thyroid is relatively homogenous by CT. [place] tonsils are symmetric. The soft palate is thin and the uvula is midline. Hypopharynx is widely patent. The epiglottis is thin and symmetric. Vocal cords are symmetric. The trachea is widely patent. Pulmonary apices are clear. No significant atheromatous disease shown. The salivary glands are symmetric and unremarkable. Subcentimeter cervical chain lymph nodes are not pathologically enlarged. No lymphadenopathy identified. No destructive bone lesions. Visualized sinuses and mastoid air cells are clear. Impression: Negative CT of the neck without contrast. PROCEDURE INTERPRETED AT [facility] DEPARTMENT OF RADIOLOGY Final Report Signed by: Raul Almaraz M.D.
--- NOTE | 2016-07-12 13:14 | Cardiology Progress Note ---
Assessment and Plan (1) Chest pain Status: Acute Assessment and plan: In general, her symptoms appear atypical of cardiac disease, however her cardiac enzymes are mildly abnormal with a very minimally elevated troponin which seems to be nonspecific in this setting. We will cover her empirically with anticoagulation, aspirin. She has had wheezing, shortness of breath, and hypothyroidism with symptoms during this hospital stay. For this reason, she is not suitable to undergo any kind of stress testing. We will not proceed with cardiac catheterization unless there were an emergency due to her hyperthyroidism. Current Visit: Yes (2) Hypertension Status: Chronic Assessment and plan: We will adjust her antihypertensive regimen as necessary. Current Visit: Yes (3) Bronchitis Status: Acute Assessment and plan: I appreciate pulmonology's assistance. We are going to move her to the ICU and she is going to receive racemic epinephrine. Dr. Blackwood has been made aware of her condition by nursing. Current Visit: Yes (4) Tobacco abuse Status: Chronic Assessment and plan: The merits and techniques of cessation have been addressed. Current Visit: Yes (5) Thyromegaly Status: Acute Assessment and plan: Clinically she has acute thyroiditis. I appreciate the hospitalist service managing this. Current Visit: Yes Cardiology - PN: Subj Interval history: This is a late entry, the patient was seen at approximately 1030 a.m. The patient was seen urgently because of shortness of breath. She was somewhat short of breath this morning, then became acutely severely dyspneic. Nursing notified me of her distress, and upon arrival the patient was receiving an albuterol treatment. Her sats were 100% but she was extremely tachypnea. Pulse was 88. She was sitting straight up in bed receiving her nebulizer. She sounded wheezy and stridorous on exam. Exam (Progress Note) - Constitutional Vitals: Period Temp Pulse Resp BP Sys/Kat Pulse Ox Last 24 Hr 97 F-98.3 F 61-102 18-28 122-139/62-78 95-100 General appearance: normal weight, severe distress - Head Head exam: Present: normal inspection, normocephalic, atraumatic - Eye Eye exam: Absent: conjunctival injection, periorbital swelling, scleral icterus , laceration to eyelids Pupils: Present: SHAYNA. Absent: dilated, fixed, irregular - ENT ENT exam: Present: normal exam, normal external ear exam - Neck Neck exam: Present: tenderness, thyromegaly. Absent: lymphadenopathy, meningismus - Respiratory Respiratory exam: Present: accessory muscle use, stridor, wheezes - Cardiovascular Cardiovascular exam: Present: regular rate and rhythm, tachycardia. Absent: JVD - GI/Abdominal GI/Abdominal exam: Present: normal bowel sounds. Absent: mass, tenderness - Extremities Exam Extremities exam: Present: normal inspection. Absent: edema - Back Exam Back exam: Present: normal inspection. Absent: vertebral tenderness - Neurological Exam Neurological exam: Present: alert, oriented X3 - Psychiatric Psychiatric exam: Present: normal affect, anxious - Skin Skin exam: Present: normal color, dry. Absent: erythema, petechiae, rash Result/EKG - Labs CBC & BMP: 07/12/16 05:41 07/12/16 05:41 Lab Results: I have reviewed the past 24 hour labs Labs: Laboratory Results - last 24 hr 07/12/16 07/12/16 05:41 05:41 WBC 15.2 H D RBC 4.84 Hgb 13.8 Hct 40.6 MCV 83.9 L MCH 29 MCHC 34.0 RDW 12.5 Plt Count 224 D MPV 12.0 Neut % (Auto) 89.7 H Lymph % (Auto) 5.3 L Dubois % (Auto) 4.5 Eos % (Auto) 0.0 Baso % (Auto) 0.0 Neut # (Auto) 13.7 H Lymph # (Auto) 0.8 L Dubois # (Auto) 0.7 Eos # (Auto) 0.0 Baso # (Auto) 0.0 Immature Gran % 0.5 Nucleated RBC % 0.0 Immature Gran # 0.07 Nucleated RBCs # 0.00 Sodium 141 Potassium 4.6 Chloride 106 Carbon Dioxide 25 Anion Gap 14.6 BUN 10 Creatinine 0.80 GFR Calculation 113 BUN/Creatinine Ratio 12.00 Glucose 164 H Calculated Osmolality 283.3 Calcium 9.7 Quality Measures - VTE Contraindication to Pharmacological VTE Prophylaxis: Already on Theraputic Agent , No Prophylaxis Needed
--- NOTE | 2016-07-12 16:07 | Hospitalist Progress Note ---
Assessment and Plan - Time spent with patient Time spent with patient: Greater than 30 minutes (1) Hyperthyroidism Status: Acute Assessment and plan: Continue current management. Patient will need to see endocrinology as an outpatient. Current Visit: Yes (2) Acute asthma exacerbation Status: Acute Assessment and plan: Patient's lung sounds are clear on auscultation. Vitals are stable. Continue current management and defer to pulmonary. Current Visit: Yes (3) Chest pain Status: Acute Assessment and plan: Currently under evaluation by primary. Current Visit: Yes (4) Hypertension Status: Chronic Assessment and plan: Better controlled. Current Visit: Yes Hospitalist: Subjective Interval history: This morning the patient had respiratory distress and was transferred to the intensive care unit. Currently she appears very comfortable. Exam - Constitutional Vitals: Period Temp Pulse Resp BP Sys/Kat Pulse Ox Last 24 Hr 97 F-97.9 F 61-102 18-28 122-179/62-102 95-100 General appearance: no acute distress - Head Head exam: Present: normocephalic, atraumatic - Eye Eye exam: Present: EOMI Pupils: Present: SHAYNA - ENT ENT exam: Present: normal exam - Neck Neck exam: Present: normal inspection - Respiratory Respiratory exam: Present: clear to auscultation bilaterally. Absent: rhonchi, wheezes - Cardiovascular Cardiovascular exam: Present: regular rate and rhythm. Absent: gallop, rubs, systolic murmur - GI/Abdominal GI/Abdominal exam: Present: normal bowel sounds, soft. Absent: distended, firm , guarding, tenderness, rebound - Extremities Exam Extremities exam: Present: normal inspection. Absent: calf tenderness, edema Results - Labs CBC & BMP: 07/12/16 05:41 07/12/16 05:41 Lab Results: I have reviewed the past 24 hour labs Quality Measures - VTE Contraindication to Pharmacological VTE Prophylaxis: Already on Theraputic Agent , No Prophylaxis Needed
[2016-07-13] MEDS: IPRATROPIUM 500 MCG/2.5 ML NEB RESP TX SCH ×4 (01:16→21:36)
--- NOTE | 2016-07-13 07:10 | Pulmonology Progress Note ---
Pulmonary - PN: Subj Interval history: This 50-year-old black female has hyperthyroidism. Newly diagnosed. Also chronic smoker with probable chronic bronchitis. I do think she has a component of asthma. She is better on current medications. She's getting Solu- Medrol and antibiotics as well as Xopenex and Atrovent. She has been started on a low-dose of beta nancy for her hyperthyroid state. Also on methimazole. Defer to hospitalist service as far as management of hyperthyroidism. Probably can be changed to oral medications if needed for discharge in the next day or so. Would keep her on prednisone for about 5 days. Would use Xopenex and Atrovent rather than albuterol due to the tremors from her hyperthyroid. 07/13/16 patient had some respiratory distress yesterday morning. She was moved to intensive care. Was given 1 treatment with racemic epinephrine and symptoms subsided. She looks fine now. CT of the neck was okay there is no evidence of any compromise of upper airway. From pulmonary standpoint she can be changed to oral prednisone and I would keep her on 40 mg a day for about 5 days. Also some oral antibiotics. Can be moved to the floor. Agree with anti-thyroid drugs. Agree with low-dose beta nancy. Needs to see [facility] when that can be arranged. Exam (Progress Note) - Constitutional Vitals: Period Temp Pulse Resp BP Sys/Kat Pulse Ox Last 24 Hr 97 F-98.4 F 61-95 18-28 114-200/53-113 95-100 Exam: He is alert seems calmer. Vital signs are normal. Pulse around 80. Pupils react to light throat clear. Neck supple no bruits. Chest clear, no wheezes in the chest. She is not hoarse. Heart normal rate rhythm no murmurs. abdomen soft no masses. extremities no clubbing cyanosis edema. Again she has some velvety changes in her skin consistent with hyperthyroid. She has undercutting of the fourth nail on both hands. Results - Labs CBC & BMP: 07/12/16 05:41 07/12/16 05:41 Lab Results: I have reviewed the past 24 hour labs Assessment and Plan (1) Bronchitis Status: Acute Assessment and plan: Patient relates that she's been diagnosed as having chronic bronchitis. This is likely related to cigarette smoking. She's been advised she needs to stop. We will treat this with nebulized Atrovent. I do not want to use albuterol because of her hyperthyroidism. We can use Xopenex in its place. Solu-Medrol will help as well. 07/12/2016 acute on chronic bronchitis with bronchospasm. Can change to oral prednisone 40 mg daily for 5 days when ready for discharge. 07/13/2016 she is improved. Can be discharged on oral prednisone and a round of antibiotics by mouth. Current Visit: Yes (2) Tobacco abuse Status: Chronic Assessment and plan: Patient has been strongly advised to stop smoking. 07/13/2016 patient advised to stop smoking once again. Current Visit: Yes (3) Acute asthma exacerbation Status: Acute Assessment and plan: She is having some bronchospasm. I think she has both bronchitis and asthma. Treatment as per above. 07/12/2016 I don't think she would do well with long-acting bronchodilator. Would use inhaled steroid alone as a controller. 07/13/2016 Will put on Asmanex long-term. Current Visit: Yes (4) Hyperthyroidism Status: Acute Assessment and plan: Patient has a fine tremor. She has undergone cutting of the fourth nails. TSH is low and free T4 is high. Thyroid is enlarged on physical exam and by ultrasound. I do not see any eye signs. However I think she may well have Graves' disease. Endocrine we will need to see her. She is on low-dose beta nancy. This will need to be watched closely with her bronchospasm. Perhaps it would be best to put her on some anti-thyroid drugs now. We'll defer to the hospitalist service on that. 07/12/2016 patient on low-dose beta nancy plus methimazole. Plans are for her to go to an [facility] in [place] when that can be arranged. 07/13/2016 agree with current treatment. Follow up with endocrinology assume this can be arranged. Current Visit: Yes
[2016-07-13] MEDS ORDERED: LEVALBUTEROL 0.63 MG/3 ML NEB RESP TX PRN (07:14)
[2016-07-13] MEDS: AZITHROMYCIN 250 MG TABLET PO SCH (08:53)
[2016-07-13] MEDS: LISINOPRIL 10 MG TABLET PO SCH (08:53)
[2016-07-13] MEDS: hydroCHLOROthiazide 12.5 MG CAPSULE PO SCH (08:53)
[2016-07-13] MEDS: predniSONE 20 MG TABLET PO SCH (08:53)
[2016-07-13] MEDS: PANTOPRAZOLE 40 MG TABLET PO SCH (08:53)
[2016-07-13] MEDS: methIMAzole 5 MG TABLET PO SCH (08:53)
--- NOTE | 2016-07-13 09:04 | Hospitalist Progress Note ---
Assessment and Plan - Time spent with patient Time spent with patient: Greater than 30 minutes (1) Hyperthyroidism Status: Acute Assessment and plan: Continue current management. Patient will need to see endocrinology as an outpatient. Current Visit: Yes (2) Acute asthma exacerbation Status: Acute Assessment and plan: Patient's lung sounds are clear on auscultation. Vitals are stable. Continue current management and defer to pulmonary. Current Visit: Yes (3) Chest pain Status: Acute Assessment and plan: Currently under evaluation by primary. Current Visit: Yes (4) Hypertension Status: Chronic Assessment and plan: Better controlled. Current Visit: Yes Hospitalist: Subjective Interval history: No overnight events. No complaints. Exam - Constitutional Vitals: Period Temp Pulse Resp BP Sys/Kat Pulse Ox Last 24 Hr 97.7 F-98.4 F 68-95 18-28 114-200/53-113 95-100 General appearance: no acute distress - Head Head exam: Present: normocephalic, atraumatic - Eye Eye exam: Present: EOMI Pupils: Present: SHAYNA - ENT ENT exam: Present: normal exam - Neck Neck exam: Present: normal inspection - Respiratory Respiratory exam: Present: clear to auscultation bilaterally. Absent: rhonchi, wheezes - Cardiovascular Cardiovascular exam: Present: regular rate and rhythm. Absent: gallop, rubs, systolic murmur - GI/Abdominal GI/Abdominal exam: Present: normal bowel sounds, soft. Absent: distended, firm , guarding, tenderness, rebound - Extremities Exam Extremities exam: Present: normal inspection. Absent: calf tenderness, edema Results - Labs CBC & BMP: 07/12/16 05:41 07/12/16 05:41 Lab Results: I have reviewed the past 24 hour labs Quality Measures - VTE Contraindication to Pharmacological VTE Prophylaxis: Already on Theraputic Agent , No Prophylaxis Needed
--- NOTE | 2016-07-13 10:24 | Physician Query Form ---
CLICK EDIT DOCUMENT TO SELECT QUERY ANSWER --> OK --> SIGN Mahi Lai RN Clinical Administrative Operations Coordinator W) [phone] (f) [phone] [email or web address] PROVIDERS: Make your selection(s) from the choices in EACH section by typing an "x" and enter comments in the comment section. Please use your independent medical judgment in providing your response. This request does not imply that any particular answer is desired or expected. CLINICAL INDICATORS: (Providers should not edit this section) "Seen urgently because of Shortness of breath. Became acutely severe dyspneic. Tachypnea. Receiving her nebulizer. Sounded wheezy and stridorous on exam." " Had respiratory distress and was transferred to ICU" "Was given 1 treatment with racemic epinepherine and symptoms subsided" If possible, please further clarify the type and acuity of respiratory diagnosis : ACUITY: (x ) Acute ( ) Chronic ( ) Acute on Chronic TYPE: (x ) Respiratory failure with hypoxia ( ) Respiratory failure with hypercapnia ( ) Respiratory Arrest ( ) Postprocedural/postoperative respiratory failure ( ) ARDS (Adult/Acute Respiratory Distress Syndrome) ( ) Other, please specify: ( ) Clinically unable to determine Recognized criteria for respiratory failure PH <7.35 or >7.45 PO2 <60 PCO2 >50 RR >24 O2 Sat <90% on RA or <95% on O2 Use of accessory muscles Unable to speak in full sentences Intubation is not required COMMENTS: Use of terms such as suspected, likely, or probable (associated with a specific diagnosis that is being evaluated, monitored, or treated as if it exists) are acceptable and can be restated in the discharge summary if not ruled out. MTDD
[2016-07-13] MEDS: MOMETASONE 220 MCG/PUFF INHALER 14 DOSE INH SCH (10:36)
[2016-07-13] MEDS: BISACODYL 5 MG TABLET PO PRN (15:58)
--- NOTE | 2016-07-13 16:27 | Cardiology Progress Note ---
Linda Wilcox April RN, am scribing for, and in the presence of, Rosangela Ledbetter MD 16:27. Assessment and Plan (1) Bronchitis Status: Acute Assessment and plan: Breathing is much better than yesterday. Current Visit: Yes (2) Chest pain Status: Acute Assessment and plan: Denies chest pain. This is now resolved with treatment of her asthma and hyperthyroidism. Current Visit: Yes (3) Thyromegaly Status: Acute Current Visit: Yes (4) Hypertension Status: Chronic Current Visit: Yes (5) Tobacco abuse Status: Chronic Current Visit: Yes (6) Hyperthyroidism Status: Acute Assessment and plan: Continue treatment. Avoiding nonselective beta blockers due to her asthma. Current Visit: Yes Cardiology - PN: Subj Interval history: Sitting up in bed in no acute distress. She is currently getting a breathing treatment, but reports she has been using oxygen via NBP. She denies chest pain , shortness of breath, or palpitations. O2 Sat 99%. Currently she is in sinus rhythm with heart rates in the 80's. We will try to get her a telemetry bed today. Exam (Progress Note) - Constitutional Vitals: Period Temp Pulse Resp BP Sys/Kat Pulse Ox Last 24 Hr 97.7 F-98.4 F 68-95 18-28 114-200/53-113 95-100 General appearance: no acute distress, over weight - Head Head exam: Present: normal inspection. Absent: abrasion, hematoma - Eye Eye exam: Absent: periorbital swelling, laceration to eyelids - ENT ENT exam: Present: normal exam, normal external ear exam - Neck Neck exam: Present: thyromegaly. Absent: tenderness - Respiratory Respiratory exam: Present: rales, other (oxygen in use). Absent: accessory muscle use, chest wall tenderness, wheezes - Cardiovascular Cardiovascular exam: Present: regular rate and rhythm. Absent: bradycardia, tachycardia - GI/Abdominal GI/Abdominal exam: Present: normal bowel sounds, soft. Absent: distended, tenderness - Extremities Exam Extremities exam: Absent: calf tenderness, edema - Back Exam Back exam: Absent: muscle spasm, vertebral tenderness - Neurological Exam Neurological exam: Present: alert, oriented X3 - Psychiatric Psychiatric exam: Present: normal affect, normal mood - Skin Skin exam: Present: warm, dry. Absent: abrasion, rash Result/EKG - Labs CBC & BMP: 01/26/17 05:41 07/12/16 05:41 Lab Results: I have reviewed the past 24 hour labs - EKG EKG results: interpreted by me EKG shows: sinus rhythm Quality Measures - VTE Contraindication to Pharmacological VTE Prophylaxis: Already on Theraputic Agent , No Prophylaxis Needed IAnatoly Jennifer, MD, personally performed the services described in this documentation, ascribed by Michelle Mckeon RN in my presence, and it is both accurate and complete .
[2016-07-14] MEDS: IPRATROPIUM 500 MCG/2.5 ML NEB RESP TX SCH ×3 (01:09→13:56)
[2016-07-14 06:13] LABS: Basophils % 0.1 % (0.0-0.8); Eosinophils # 0.1 10*3/uL (0.0-0.87); Eosinophils % 0.7 % (0.00-10.9); Hematocrit 44.3 VOL% (35.7-47.0); Hemoglobin 15.1 GM/DL (12.0-16.0); Immature Granulocytes % 0.3 %; Immature Granulocytes Absolute 0.03 #; Lymphocytes # 2.8 10*3/uL (1.4-4.0); Lymphocytes % 29.5 % (21.3-54.2); Mean Corpuscular HGB Conc 34.1 GM/DL (32-36); Mean Corpuscular Hemoglobin 29 PG (27-34); Mean Corpuscular Volume 83.7 FL (87-102); Mean Platelet Volume 11.9 FL (9.6-12.0); Monocytes # 1.2 10*3/uL (0.11-0.8); Monocytes % 13.1 % (1.7-12.7); Neutrophils # 5.3 10*3/uL (1.4-7.4); Neutrophils % 56.3 % (38.7-73.9); Platelet Count 223 10*3/uL (130-400); Red Blood Count 5.29 10*6/uL (3.8-5.5); Red Cell Distribution Width 12.4 % (9.3-17.3); White Blood Count 9.4 10*3/uL (4.5-13.71)
[2016-07-14 06:47] LABS: Calcium 8.7 MG/DL (8.5-10.1)
[2016-07-14 06:48] LABS: Osmolality,Calculated 283.1 MOS/KG (273-304); Potassium 4.1 MMOL/L (3.5-5.1)
--- NOTE | 2016-07-14 08:27 | Pulmonology Progress Note ---
Pulmonary - PN: Subj Interval history: This 50-year-old black female has hyperthyroidism. Newly diagnosed. Also chronic smoker with probable chronic bronchitis. I do think she has a component of asthma. She is better on current medications. She's getting Solu- Medrol and antibiotics as well as Xopenex and Atrovent. She has been started on a low-dose of beta nancy for her hyperthyroid state. Also on methimazole. Defer to hospitalist service as far as management of hyperthyroidism. Probably can be changed to oral medications if needed for discharge in the next day or so. Would keep her on prednisone for about 5 days. Would use Xopenex and Atrovent rather than albuterol due to the tremors from her hyperthyroid. 07/13/16 patient had some respiratory distress yesterday morning. She was moved to intensive care. Was given 1 treatment with racemic epinephrine and symptoms subsided. She looks fine now. CT of the neck was okay there is no evidence of any compromise of upper airway. From pulmonary standpoint she can be changed to oral prednisone and I would keep her on 40 mg a day for about 5 days. Also some oral antibiotics. Can be moved to the floor. Agree with anti-thyroid drugs. Agree with low-dose beta nancy. Needs to see pole framer when that can be arranged. 07/14/2016 patient back on telemetry. Feeling much better. Lungs are clear. From pulmonary standpoint she can be discharged and go to see the pole framer Saturday. Would keep her on prednisone for about 5 more days. Finish out Zithromax. Use Atrovent and Xopenex for bronchodilators. Exam (Progress Note) - Constitutional Vitals: Period Temp Pulse Resp BP Sys/Kat Pulse Ox Last 24 Hr 97.2 F-98.2 F 63-93 18-28 132-149/67-92 96-99 Exam: He is alert seems calm. Vital signs are normal. Pulse around 80. Pupils react to light throat clear. Neck supple no bruits. Chest clear, no wheezes in the chest. She is not hoarse. Heart normal rate rhythm no murmurs. abdomen soft no masses. extremities no clubbing cyanosis edema. Again she has some velvety changes in her skin consistent with hyperthyroid. She has undercutting of the fourth nail on both hands. Results - Labs CBC & BMP: 07/14/16 05:48 07/14/16 05:48 Lab Results: I have reviewed the past 24 hour labs Assessment and Plan (1) Bronchitis Status: Acute Assessment and plan: Patient relates that she's been diagnosed as having chronic bronchitis. This is likely related to cigarette smoking. She's been advised she needs to stop. We will treat this with nebulized Atrovent. I do not want to use albuterol because of her hyperthyroidism. We can use Xopenex in its place. Solu-Medrol will help as well. 07/12/2016 acute on chronic bronchitis with bronchospasm. Can change to oral prednisone 40 mg daily for 5 days when ready for discharge. 07/13/2016 she is improved. Can be discharged on oral prednisone and a round of antibiotics by mouth. 07/14/2016 this is improved. Needs prednisone for about 5 more days post discharge. Finish round of Zithromax. Use Atrovent and Xopenex for inhalers. Current Visit: Yes (2) Tobacco abuse Status: Chronic Assessment and plan: Patient has been strongly advised to stop smoking. 07/13/2016 patient advised to stop smoking once again. Current Visit: Yes (3) Acute asthma exacerbation Status: Acute Assessment and plan: She is having some bronchospasm. I think she has both bronchitis and asthma. Treatment as per above. 07/12/2016 I don't think she would do well with long-acting bronchodilator. Would use inhaled steroid alone as a controller. 07/13/2016 Will put on Asmanex long-term. 07/14/2016 have added Asmanex and she should stay on that long-term. Current Visit: Yes (4) Hyperthyroidism Status: Acute Assessment and plan: Patient has a fine tremor. She has undergone cutting of the fourth nails. TSH is low and free T4 is high. Thyroid is enlarged on physical exam and by ultrasound. I do not see any eye signs. However I think she may well have Graves' disease. Endocrine we will need to see her. She is on low-dose beta nancy. This will need to be watched closely with her bronchospasm. Perhaps it would be best to put her on some anti-thyroid drugs now. We'll defer to the hospitalist service on that. 07/12/2016 patient on low-dose beta nancy plus methimazole. Plans are for her to go to an pole framer in [place] when that can be arranged. 07/13/2016 agree with current treatment. Follow up with endocrinology assume this can be arranged. 07/14/2016 presently on low-dose beta nancy and methimazole. Seems to be fairly well controlled at present. Needs endocrinology input. Current Visit: Yes
[2016-07-14] MEDS ORDERED: NEBIVOLOL 5 MG TABLET PO SCH (09:00)
[2016-07-14] MEDS: MOMETASONE 220 MCG/PUFF INHALER 14 DOSE INH SCH (09:49)
[2016-07-14] MEDS: AZITHROMYCIN 250 MG TABLET PO SCH (09:50)
[2016-07-14] MEDS: methIMAzole 5 MG TABLET PO SCH (09:50)
[2016-07-14] MEDS: predniSONE 20 MG TABLET PO SCH (09:50)
[2016-07-14] MEDS: hydroCHLOROthiazide 12.5 MG CAPSULE PO SCH (09:50)
[2016-07-14] MEDS: LISINOPRIL 10 MG TABLET PO SCH (09:51)
[2016-07-14] MEDS: PANTOPRAZOLE 40 MG TABLET PO SCH (09:51)
--- NOTE | 2016-07-14 15:51 | Hospitalist Progress Note ---
Assessment and Plan - Time spent with patient Time spent with patient: Greater than 30 minutes (1) Hyperthyroidism Status: Acute Assessment and plan: Continue current management. Patient will need to see endocrinology as an outpatient. Recommend continuing BB and methimazole as an outpatient. Current Visit: Yes (2) Acute asthma exacerbation Status: Acute Assessment and plan: Patient's lung sounds are clear on auscultation. Vitals are stable. Continue current management and defer to pulmonary. Current Visit: Yes (3) Chest pain Status: Acute Assessment and plan: Currently under evaluation by primary. Current Visit: Yes (4) Hypertension Status: Chronic Assessment and plan: Better controlled. Current Visit: Yes Hospitalist: Subjective Interval history: No complaints, no overnight events. Exam - Constitutional Vitals: Period Temp Pulse Resp BP Sys/Kat Pulse Ox Last 24 Hr 97.2 F-98.9 F 64-86 17-20 128-149/72-89 96-99 General appearance: no acute distress - Head Head exam: Present: normocephalic, atraumatic - Eye Eye exam: Present: EOMI Pupils: Present: SHAYNA - ENT ENT exam: Present: normal exam - Neck Neck exam: Present: normal inspection - Respiratory Respiratory exam: Present: clear to auscultation bilaterally. Absent: rhonchi, wheezes - Cardiovascular Cardiovascular exam: Present: regular rate and rhythm. Absent: gallop, rubs, systolic murmur - GI/Abdominal GI/Abdominal exam: Present: normal bowel sounds, soft. Absent: distended, firm , guarding, tenderness, rebound - Extremities Exam Extremities exam: Present: normal inspection. Absent: calf tenderness, edema Results - Labs CBC & BMP: 07/14/16 05:48 07/14/16 05:48 Lab Results: I have reviewed the past 24 hour labs Quality Measures - VTE Contraindication to Pharmacological VTE Prophylaxis: Already on Theraputic Agent , No Prophylaxis Needed
--- NOTE | 2016-07-14 16:22 | Discharge Summary ---
Hospital Course - Hospital Course Hospital Course: The patient was admitted to the hospital on 07/10/2016 with complaints of generalized weakness, shortness of breath, wheezing. On physical exam, she was also noted to have an enlarged and tender thyroid. Upon admission, the patient had a mildly elevated troponin and therefore cardiology was consulted to admit the patient. She was having shortness of breath but no chest pain. In general, she did not have a high peaking pattern to her troponin. Echocardiogram was performed which showed a preserved systolic function. She was diagnosed with hyperthyroidism. Her TSH was less than 0.005 and her free T4 was 1.79. Thyroid ultrasound showed diffuse inhomogeneity with mild enlargement. The hospitalist service was consulted and they initiated Tapazole therapy. Metoprolol was initially prescribed as well, with efforts to avoid nonselective beta blockers due to her wheezing and history of asthma. She did have paroxysms of worsening wheezing and acute bronchospasm and required transfer to the ICU and observation there overnight. We changed her metoprolol to by systolic and she had a good response to this. Pulmonology was also consulted who prescribed Xopenex, Atrovent, Zithromax and prednisone. The patient improved dramatically. On the day of discharge she is feeling well. She has ambulated the halls without any complaints of chest pain or shortness of breath. She has an endocrinology appointment on Saturday and we are going to discharge her with anticipation that she attend this appointment. Diagnosis - Discharge Diagnosis (1) Bronchitis Status: Acute (2) Chest pain Status: Acute (3) Thyromegaly Status: Acute (4) Hypertension Status: Chronic (5) Tobacco abuse Status: Chronic (6) Hyperthyroidism Status: Acute Specialty Discharge - Follow Up or Referrals Discharge Plan - Discharge Data Disposition: Disch To Home/Self Care Condition at Discharge: Stable Activity: resume usual activities as tolerated Hygiene: no restrictions Driving: no restrictions - Discharge Medications New Mometasone Inhaler [Asmanex HFA 200 mcg] 220 mcg INH DAILY #1 inhaler methIMAzole [Tapazole] 5 mg PO DAILY #30 tablet Benzonatate [Tessalon] 100 mg PO TID PRN #30 capsule PRN Reason: Cough Ipratropium Neb [Atrovent Neb] 500 mcg RESP TX RT Q6H #30 neb Levalbuterol Neb [Xopenex Neb] 0.63 mg RESP TX RT Q6H PRN #30 neb PRN Reason: Shortness Of Breath/Wheezing Nebivolol [Bystolic] 5 mg PO DAILY #30 tablet Nebulizer [Aeroneb Go Nebulizer] 1 each MISC DIRECTED #1 each Nebulizer Accessories 1 each MISC DIRECTED #1 each Pantoprazole Tab [Protonix Tab] 40 mg PO DAILY #30 tablet Prednisone [Mela] 5 mg PO DAILY #15 tablet.dr Continue Lisinopril 10 mg PO DAILY hydroCHLOROthiazide [Hydrochlorothiazide] 12.5 mg PO DAILY - Follow Up or Referral Follow Up: Rosangela Ledbetter MD [Physician] - 1 Month Lucio Campos DO [Physician] - 2 Weeks Duran Blackwood MD [Physician] - 2 Weeks - Forms/Instructions Instructions: Hyperthyroidism (DC), Acute Bronchitis (DC), Hypertension (DC) Exam - Constitutional Vitals: Period Temp Pulse Resp BP Sys/Kat Pulse Ox Last 24 Hr 97.2 F-98.9 F 64-86 17-20 128-149/72-89 96-99 Exam: General appearance: normal weight, no acute distress - Head Head exam: Present: normal inspection, normocephalic, atraumatic. Absent: hematoma, laceration - Eye Eye exam: Present: EOMI. Absent: conjunctival injection, nystagmus, periorbital swelling, scleral icterus, laceration to eyelids Pupils: Present: PERRL. Absent: constricted, dilated, fixed, irregular, unequal - ENT ENT exam: Present: normal exam, normal external ear exam - Neck Neck exam: Present: Enlarged and tender thyroid. Absent: lymphadenopathy, meningismus - Respiratory Respiratory exam: Present: clear to auscultation bilaterally. Absent: accessory muscle use, chest wall tenderness - Cardiovascular Cardiovascular exam: Present: regular rate and rhythm. Absent: carotid bruit, gallop, JVD, rubs - GI/Abdominal GI/Abdominal exam: Present: normal bowel sounds, soft. Absent: distended, firm , guarding, hernia, mass, tenderness, rebound. - Extremities Exam Extremities exam: Present: normal inspection, normal capillary refill. Absent: calf tenderness, edema - Back Exam Back exam: Present: normal inspection. Absent: muscle spasm, vertebral tenderness - Neurological Exam Neurological exam: Present: alert, oriented X3, grossly intact without resting or intention tremor - Psychiatric Psychiatric exam: Present: normal affect, normal mood - Skin Skin exam: Present: normal color, warm, dry, intact. Absent: cyanosis, diaphoretic, rash, urticaria Discharge Results Labs on day of discharge: Labs from last 24 hours 07/14/16 07/14/16 05:48 05:48 WBC 9.4 D RBC 5.29 Hgb 15.1 Hct 44.3 MCV 83.7 L MCH 29 MCHC 34.1 RDW 12.4 Plt Count 223 MPV 11.9 Neut % (Auto) 56.3 Lymph % (Auto) 29.5 Mclennan % (Auto) 13.1 H Eos % (Auto) 0.7 Baso % (Auto) 0.1 Neut # (Auto) 5.3 Lymph # (Auto) 2.8 Mclennan # (Auto) 1.2 H Eos # (Auto) 0.1 Baso # (Auto) 0.0 Immature Gran % 0.3 Nucleated RBC % 0.0 Immature Gran # 0.03 Nucleated RBCs # 0.00 Sodium 142 Potassium 4.1 Chloride 105 Carbon Dioxide 27 Anion Gap 14.1 BUN 14 Creatinine 0.70 GFR Calculation 133 BUN/Creatinine Ratio 20.00 Glucose 99 Calculated Osmolality 283.1 Calcium 8.7 DS: Provider Date of admission: 07/10/16 15:21 Primary care physician: . No PCP Dr. Lucio Campos (Even though I must electronically sign this document testifying to its accuracy , I'm unable to erase the line that says no PCP) Attending physician on admission: Rosangela Ledbetter, Consults: 07/11/16 09:30 Consult to Physician [CONS] Routine Comment: hyperthyroidism, thyroiditis Consulting Provider: When should Consulting Provider be notified: In am Consult to Specialist Group: Hospitalist When should Consulting Provider be notified: Now Person Notified: HOSP. MED. Date Notified: 07/11/16 Time Notified: 09:35 07/11/16 11:31 Consult to Physician [CONS] Routine Comment: asthma- uncontrolled Consulting Provider: Duran Blackwood 07/11/16 11:36 Consult to Case Mgmt/Social Srvs [CONS] Routine Reason for Case Mgmt/Social Srvs: Other Consult Comment: referral to Endocrinology- hyperthyroidism Discharging clinician: Rosangela Ledbetter, Expected date of discharge: 07/14/16
[2016-07-14 16:59] VITALS: BP 121/72
[2016-07-16] MEDS ORDERED: LACTATED RINGERS 1,000 ML IV ONE (07:33)
== END 2016-07-14 17:06 | disposition home or self-care (01) | DRG 643 ==
LOC: N.ED 12:28 → N.EDINP 12:28 → OBSVTOIN 15:21 → N.TELEN 17:14 → N.ICU 07-12 11:44 → N.TELEN 07-13 12:04
PROVIDERS: ADMIT Internal Medicine Cardiovascular Disease; ATTEND Internal Medicine Cardiovascular Disease

== ENCOUNTER 2017-02-28 08:59 | Inpatient (IN) ==
[2017-02-28] MEDS ORDERED: ALBUTEROL/IPRATROPIUM 3 ML NEB RESP TX STA (09:41)
[2017-02-28] MEDS ORDERED: METOCLOPRAMIDE 10 MG/2 ML VIAL IV STA (09:41)
[2017-02-28] MEDS ORDERED: ONDANSETRON ODT 4 MG TABLET PO STA (09:41)
[2017-02-28] MEDS ORDERED: methylPREDNISolone SOD SUC 125 MG/2 ML VIAL IV STA (09:41)
--- NOTE | 2017-02-28 09:47 | Emergency Department Note ---
Arrival - Arrival Chief Complaint: Shortness of Breath Stated Complaint: sob ED Nursing Triage Note: C/o cough, SOB, wheezing-onset 0500 this morning. Patient states she used her inhaler without relief. Audible wheezing noted. Mode of Arrival: Stretcher Source: Patient Time Seen by Provider: 02/28/17 09:41 - History of Present Illness HPI Narrative: This 51-year-old black female presents with 24 hours of nausea, vomiting, diarrhea, and abdominal cramping associated with onset this morning of exacerbation of her long-standing asthma associated with paroxysms of coughing and dyspnea on exertion. Patient denies chest pain, hemoptysis, chills, fever, or purulence as well as any heartburn, belching, or water brash. Currently she appears uncomfortable but in no acute medical distress. Onset (ago): hour(s) (Patient presents 24 hours post onset of symptoms) Date of Last Menstrual Period: menopause Allergies/Adverse Reactions: Allergies Allergy/AdvReac Type Severity Reaction Status Date / Time No Known Allergies Allergy Verified 07/10/16 17:20 Home Medications: Home Medications Medication Instructions Recorded Confirmed Type Lisinopril 10 mg PO DAILY 07/10/16 07/10/16 History hydroCHLOROthiazide 12.5 mg PO DAILY 07/10/16 07/10/16 History [Hydrochlorothiazide] Benzonatate [Tessalon] 100 mg PO TID PRN #30 capsule 07/14/16 Rx Ipratropium Neb [Atrovent Neb] 500 mcg RESP TX RT Q6H #30 neb 07/14/16 Rx Levalbuterol Neb [Xopenex Neb] 0.63 mg RESP TX RT Q6H PRN #30 neb 07/14/16 Rx Mometasone Inhaler [Asmanex HFA 220 mcg INH DAILY #1 inhaler 07/14/16 Rx 200 mcg] Nebivolol [Bystolic] 5 mg PO DAILY #30 tablet 07/14/16 Rx Nebulizer Accessories [Adult 1 each MISC DIRECTED #1 each 07/14/16 Rx Aerosol Mask] Nebulizer [Aeroneb Go Nebulizer] 1 each MISC DIRECTED #1 each 07/14/16 Rx Pantoprazole Tab [Protonix Tab] 40 mg PO DAILY #30 tablet 07/14/16 Rx methIMAzole [Tapazole] 5 mg PO DAILY #30 tablet 07/14/16 Rx predniSONE [Mela] 5 mg PO DAILY #15 tablet. 07/14/16 Rx Review of System - Review of System 12 point system: reviewed and no additional remarkable complaints except as stated - Review of System Constitutional: Present: as per HPI Respiratory: Present: as per HPI Cardiovascular: Present: as per HPI Gastrointestinal: Present: as per HPI Medical,Surgical,& Family Hx - Medical History Cardio: History of: Hypertension Endocrine: History of: Thyroid Disorder Respiratory: History of: Asthma - Family History Family History: Reports;: Family Cancer, Family Diabetes, Family Hypertension - Social History Smoking Status: Current every day smoker Frequency of Alcohol Use: None Type of Drug Use: None Exam Physical Examination: GENERAL: Obese black female in no acute distress. HEENT: Normocephalic. No trauma. Moist mucous membranes. EOMI. PERRLA. ENT NML NECK: Supple. No adenopathy. CARDIAC: Regular. No murmurs. Heart rate 81 CHEST: Large airway wheeze but no parenchymal wheezing or prolongation of expiration. No respiratory distress. O2 sat 100% ABDOMEN: Soft. Midepigastric tenderness with hypoactive bowel sounds. EXTREMITIES: No trauma. Normal ROM. No pedal edema. SKIN: No diaphoresis. No rash. NEURO: Alert. Oriented 3, motor, sensory, vibratory intact no focal deficits. Vital Signs: Vital Signs Temperature 98.7 F 02/28/17 09:07 Pulse Rate 72 02/28/17 09:14 Respiratory Rate 21 02/28/17 09:14 Blood Pressure 158/104 02/28/17 09:14 O2 Sat by Pulse Oximetry 100 02/28/17 10:23 Course - Reevaluation(s) Reevaluation #1: Advised patient for need for hospitalization for evaluation of abnormal enzymes as well as symptomatic treatment of asthma and abdominal pain - Consultations Consultation #1: Discussed with hospitalist service who will admit for further evaluation treatment. Results - Labs CBC & BMP: 02/28/17 09:01 02/28/17 09:01 Labs: I reviewed the lab and noted its normalcy excepting for the abnormality of cardiac enzymes. - Impressions EKG: Sinus rhythm at 77 with normal SD interval and QRS duration. Diffuse ST flattening with depression in the inferior leads with possible old anterior AL. - Diagnostic Findings Procedure: Abdominal x-ray: image reviewed by me, report reviewed by me (Normal abdomen), Chest x-ray: image reviewed by me, report reviewed by me (Normal chest ) Disposition Clinical Impression: Abnormal cardiac enzymes, Asthma, Gastroenteritis Case discussed with: patient Disposition: Still a Patient Condition: Stable Time of Disposition: 11:02
[2017-02-28 09:50] LABS: Basophils % 0.3 % (0.0-0.8); Eosinophils # 0.1 10*3/uL (0.0-0.87); Eosinophils % 0.7 % (0.00-10.9); Hematocrit 37.5 VOL% (35.7-47.0); Hemoglobin 13.5 GM/DL (12.0-16.0); Immature Granulocytes % 0.6 %; Immature Granulocytes Absolute 0.04 #; Lymphocytes # 1.2 10*3/uL (1.4-4.0); Lymphocytes % 16.7 % (21.3-54.2); Mean Corpuscular Hemoglobin 30 PG (27-34); Mean Corpuscular Volume 82.2 FL (87-102); Monocytes # 0.4 10*3/uL (0.11-0.8); Monocytes % 5.9 % (1.7-12.7); Neutrophils # 5.4 10*3/uL (1.4-7.4); Neutrophils % 75.8 % (38.7-73.9); Platelet Count 229 T/CUMM (130-400); Red Blood Count 4.56 MC/CUMM (3.8-5.5); Red Cell Distribution Width 12.8 % (9.3-17.3); White Blood Count 7.1 T/CUMM (4-12)
[2017-02-28] MEDS ORDERED: ONDANSETRON ODT 4 MG TABLET PO ONE (10:00)
[2017-02-28] MEDS ORDERED: TERBUTALINE 1 MG/1 ML VIAL SUBCUT ONE (10:00)
[2017-02-28] MEDS ORDERED: METOCLOPRAMIDE 10 MG/2 ML VIAL ONE (10:01)
[2017-02-28] MEDS ORDERED: methylPREDNISolone SOD SUC 125 MG/2 ML VIAL ONE (10:01)
--- NOTE | 2017-02-28 10:13 | XRay Report ---
XR chest 2V Indication: Shortness of breath Comparison: 10 July 2016 Findings: The heart and mediastinum are normal in size and configuration. The pulmonary vascularity is normal in caliber. No lung infiltrates, effusions, pneumothorax or other abnormality is demonstrated. Impression: No acute cardiopulmonary disease. PROCEDURE INTERPRETED AT [facility] [place] DEPARTMENT OF RADIOLOGY Final Report Signed by: Dr. Salbador Augustin
--- NOTE | 2017-02-28 10:16 | XRay Report ---
XR abdomen 2V Indication: Abdominal pain and cramping Comparison: None available Findings: No free fluid or free air seen. The bowel gas pattern appears within normal limits. No abnormal calcifications are present. No other abnormality is identified. Impression: No evidence of abnormality demonstrated PROCEDURE INTERPRETED AT [facility] DEPARTMENT OF RADIOLOGY Final Report Signed by: Dr. Salbador Augustin
[2017-02-28] MEDS: TERBUTALINE 1 MG/1 ML VIAL SUBCUT SCH ×2 (10:18→10:54)
[2017-02-28 10:21] LABS: Albumin 4.1 G/DL (3.4-5.0); Bilirubin,Total 0.7 MG/DL (0.2-1.0); CKMB % 2.7 %; Calcium 9.8 MG/DL (8.5-10.1); Osmolality,Calculated 274.8 MOS/KG (273-304); Potassium 4.3 MMOL/L (3.5-5.1); Total Protein 7.3 G/DL (6.4-8.3)
[2017-02-28 10:23] LABS: Troponin I Only 0.046 NG/ML (0.00-0.045)
[2017-02-28 10:30] LABS: Apearance,Urine CLEAR (Clear); Bacteria,Urine Occasional /HPF (Few); Bilirubin,Urine Negative (Negative); Blood, Urine Large mg/dL (Negative); Glucose,Urine (UA) 150 mg/dL (Negative); Ketones,Urine 5 mg/dL (Negative); Mucus,Urine Occasional /LPF (Occasional); Nitrite,Urine Negative (Negative); Protein,Urine Negative; RBC,Urine 29 /HPF (0-4); Squamous Epithelial Cell,Urine Occasional /HPF (0-10); Urine Color Straw (Yellow); Urine Specific Gravity 1.005 (1.001-1.035); Urine Urobilinogen < 2.0 EU/DL (0.2-1.0); WBC,Urine 2 /HPF (0-6)
[2017-02-28 10:40] LABS: Barbiturates Screen,Urine Negative (Negative); Benzodiazepines Screen,Urine Negative (Negative); Cannabinoid Screen,Urine Negative (Negative); Opiate Screen,Urine Negative (Negative); Phencyclidine Screen,Urine Negative (Negative)
--- NOTE | 2017-02-28 10:55 | EKG Report ---
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
[2017-02-28] MEDS ORDERED: ONDANSETRON 4 MG/2 ML VIAL IV PRN (12:48)
--- NOTE | 2017-02-28 13:03 | EKG Report ---
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
[2017-02-28 13:53] LABS: Troponin I Only 0.046 NG/ML (0.00-0.045)
[2017-02-28] MEDS: ALBUTEROL/IPRATROPIUM 3 ML NEB RESP TX SCH ×2 (14:30→19:22)
--- NOTE | 2017-02-28 17:46 | Family Practice History&Phys ---
Assessment and Plan (1) Vomiting Status: Acute Assessment and plan: 02/28/17 Treat palliatively with medication Current Visit: Yes (2) Gastroenteritis Status: Acute Assessment and plan: 02/28/17. We'll watch tonight, hydrate and give medication for nausea and vomiting Current Visit: Yes (3) Acute asthma exacerbation Status: Acute Assessment and plan: 02/28/17: Steroids if needed. Otherwise, use DuoNeb as Current Visit: No (4) Tobacco abuse Status: Chronic Assessment and plan: 02/28/17. Patient has stopped this this is not an issue anymore Current Visit: No History of Present Illness Chief complaint: abdominal discomfort, nausea and vomiting, diarrhea History of present illness: Ms. Drake is a 51 year old female Came into the emergency room with complaints of nausea, abdominal cramping and diarrhea. States that it started after eating food 2 nights ago, it tended to get worse yesterday but she admits that although was bad. She ate a large breakfast and for lunch a green beans, chicken, corn bread and macaroni and cheese. He drank 2 wine coolers yesterday and states that she drinks them pretty much every day. She has a history of asthma and has also had some asthmatic symptoms, which got worse today as well. She's not having any chest pain or shortness of breath except that associated with the mild asthma but she has not used her breathing treatment today (albuterol). She's not had any neck pain or jaw pain nor has she had any diaphoresis associated with this. The EKGs were noted. Troponin and other I suppose were essentially normal with only a 0.001 Elevation of troponin from normal. She again never had any chest pain. Was recently seen this past year, earlier by cardiology. She has normal lipids at that time and also has stopped smoking. She has gained a little weight, however, which we are going to have to work on. She states that she " loves to eat". All the remaining labs were normal except a slight elevation of glucose. She may be starting new onset diabetes. I will get an A1c. At this time. I plan on hydrating her with normal saline and it should be noted that in the room. She stated "I'm starving because I haven't eaten hardly anything today." And started eating before I left. I suspect this is a gastroenteritis picture. She states that again. This all started after eating a lot of food present. We'll monitor closely. She is on a heart monitor this time. I'm going to recheck her thyroid studies and also give her medication for cramping and vomiting. If enzymes go up. I will get a cardiology consult Home Medications Medication Instructions Recorded Confirmed Type Lisinopril 10 mg PO QAM 07/10/16 02/28/17 History Albuterol Sulfate [Proair HFA] 2 puff INH Q4H PRN 02/28/17 02/28/17 History Mometasone Inhaler [Asmanex HFA 220 mcg INH QAM 02/28/17 02/28/17 History 200 mcg] Nebivolol [Bystolic] 5 mg PO QPM 02/28/17 02/28/17 History Selenium [Selenium Tab] 200 mcg PO QAM 02/28/17 02/28/17 History Allergies Allergy/AdvReac Type Severity Reaction Status Date / Time No Known Allergies Allergy Verified 07/10/16 17:20 - Constitutional Constitutional: Absent: anorexia - EENT Eyes: Absent: blurry vision Nose, mouth and throat: Absent: epistaxis, nasal congestion - Cardiovascular Cardiovascular: Absent: chest pain at rest, dyspnea (except associated with asthma) - Respiratory Respiratory: Absent: cough (chest x-rays normal) - Gastrointestinal Gastrointestinal: Present: abdominal pain, bloating, nausea, vomiting - Genitourinary Genitourinary: Absent: difficulty urinating, hematuria - Musculoskeletal Musculoskeletal: Absent: arthralgias - Neurological Neurological: Absent: abnormal speech - Psychiatric Psychiatric: Present: anxiety - Endocrine Endocrine: Absent: cold intolerance, polydipsia - Hematologic/Lymphatic Hematologic/Lymphatic: Absent: easy bruising, lymphadenopathy Medical,Surgical,& Family Hx - Medical History Cardio: History of: Hypertension Endocrine: History of: Thyroid Disorder Respiratory: History of: Asthma, Bronchitis Musculoskeletal: No history of: Amputation - Surgical History Abdominal Surgeries: Patient denies: Abdominal Surgery Reproductive Surgeries: Surgical HX of;: Section - Family History Family History: Reports;: Family Cancer, Family Diabetes, Family Hypertension - Social History Smoking Status: Current every day smoker Frequency of Alcohol Use: None Type of Drug Use: None Exam - Constitutional Vitals: Period Temp Pulse Resp BP Sys/Kat Pulse Ox Last 24 Hr 98.0 F-98.7 F 67-91 7-28 132-158/61-104 96-100 Exam: Well-developed but obese female. Is alert and oriented, answers all questions appropriately and is in no acute distress at this time. Very cognitive. She does work at the [employer] and admits that she gets out every day. 2 times a day and walks 1 mile without any difficulty. HEENT pupils are equally reactive to light. Extraocular movements are intact. Neck is supple and trachea is midline. Cardiovascular rate is regular. I don't appreciate any gallop, murmur or rub. She denies any chest pain at all. Lungs are clear bilaterally except for possibly a little mild wheezing in the upper airways. Abdomen is soft, nondistended she states that she had a good bowel movement yesterday morning but has some diarrhea today. Extremities no clubbing, cyanosis, or edema. Positive dorsalis pedal pulses bilateral extremities. Neurologically no focal lateralizing signs motor or sensory deficit Results - Labs CBC & BMP: 02/28/17 09:01 02/28/17 09:01
[2017-02-28] MEDS ORDERED: HYOSCYAMINE 0.125 MG TABLET PO PRN (18:02)
[2017-02-28] MEDS ORDERED: NEBIVOLOL 5 MG TABLET PO SCH ×2 (19:00→21:00)
[2017-02-28] MEDS ORDERED: ALBUTEROL 2.5 MG/3 ML NEB RESP TX PRN (19:00)
[2017-02-28] MEDS ORDERED: NITROGLYCERIN 2% OINT 1 INCH/GM PACK TOP SCH (21:00)
[2017-03-01] MEDS: ALBUTEROL/IPRATROPIUM 3 ML NEB RESP TX SCH ×2 (00:50→07:45)
[2017-03-01 07:14] VITALS: BP 120/74
[2017-03-01] MEDS ORDERED: FLUCONAZOLE 150 MG TABLET PO ONE ×2 (08:24→10:00)
--- NOTE | 2017-03-01 08:38 | EKG Report ---
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
[2017-03-01] MEDS ORDERED: PANTOPRAZOLE 40 MG TABLET PO SCH (09:00)
[2017-03-01] MEDS ORDERED: MOMETASONE 220 MCG/PUFF INHALER 14 DOSE INH SCH (09:00)
[2017-03-01] MEDS ORDERED: LISINOPRIL 10 MG TABLET PO SCH (09:00)
[2017-03-01] MEDS ORDERED: ASPIRIN 325 MG TABLET PO SCH (09:00)
[2017-03-01 09:12] LABS: Troponin I Only 0.033 NG/ML (0.00-0.045)
--- NOTE | 2017-03-01 10:57 | Discharge Summary ---
Hospital Course - Hospital Course Hospital Course: Patient came in with acute gastroenteritis, nausea vomiting and diarrhea. We treated her overnight with IV fluids if she was little dehydrated. We gave her palliative pain medicines. She was eating on the day of admission and was eating a day of discharge and states she felt much better and in no acute distress. She had no abdominal pain or discharge. Was ready to go home and we gave her some antispasmodic medicines as well as some mild medications for nausea. I told her to return if she had any issues. She did voice understanding. I also told her not to drink so much wine, to limit her intake of food and not eat late at night. Also said to avoid fatty foods which she agreed. She does need to lose some weight as she has a BMI of 38. Diagnosis - Discharge Diagnosis (1) Vomiting Status: Acute (2) Gastroenteritis Status: Acute (3) Acute asthma exacerbation Status: Acute (4) Tobacco abuse Status: Chronic Specialty Discharge - Follow Up or Referrals Follow up with: Lucio Campos DO [Physician] - 04/04/17 1:30 pm Discharge Plan - Discharge Data Disposition: Disch To Home/Self Care Condition at Discharge: Stable Discharge Diet: advance to your usual diet Activity: increase activity as tolerated Hygiene: no restrictions Weight Bearing at Discharge: weight bear as tolerated Driving: no restrictions Contact your physician if you experience:: fever over 101, Nausea/Vomiting - Discharge Medications New Hyoscyamine Tab [Levsin Tab] 0.125 mg PO BID PRN #10 tablet PRN Reason: Abdominal Pain Ondansetron Tab [Zofran Tab] 4 mg PO Q8HR PRN #10 tablet PRN Reason: Nausea Continue Lisinopril 10 mg PO QAM Albuterol Sulfate [Proair HFA] 2 puff INH Q4H PRN PRN Reason: Shortness Of Breath/Wheezing Nebivolol [Bystolic] 5 mg PO QPM Selenium [Selenium Tab] 200 mcg PO QAM Mometasone Inhaler [Asmanex HFA 200 mcg] 220 mcg INH QAM - Follow Up or Referral Follow Up: Lucio Campos DO [Physician] - 04/04/17 1:30 pm - Forms/Instructions Instructions: Hyoscyamine (By mouth), Ondansetron (By mouth), Hyperthyroidism ( DC), Gastroenteritis (DC) Exam - Constitutional Vitals: Period Temp Pulse Resp BP Sys/Kat Pulse Ox Last 24 Hr 97.8 F-98.3 F 76-98 7-20 117-156/55-86 93-100 Discharge Results Procedures and tests throughout hospitalization: Pending Orders 02/28/17 10:42 Blood Culture Stat 02/28/17 20:31 TSH, Sensitive, S Stat Labs on day of discharge: Labs from last 24 hours 03/01/17 02/28/17 02/28/17 07:53 20:31 13:04 Total Creatine Kinase 153 157 D CK-MB (CK-2) 4.4 H 4.7 H Troponin I 0.033 0.046 H Free T4 0.93 Preliminary micro results at discharge 02/28/17 10:42 Blood Culture - Preliminary Blood No growth at 1 day 02/28/17 10:42 Blood Culture - Preliminary Blood No growth at 1 day DS: Provider Date of admission: 02/28/17 11:34 Primary care physician: . No PCP Attending physician on admission: Stephie Aponte MD Discharging clinician: Lucio Campos DO
== END 2017-03-01 13:10 | disposition home or self-care (01) | DRG 392 ==
LOC: N.ED 08:59 → OBSVTOIN 11:34 → N.EDINP 11:34 → INTOOBSV 11:34 → SUATTDRO 11:34 → N.EDINP 13:08 → N.5E 13:20
PROVIDERS: ADMIT Internal Medicine; ATTEND Family Medicine

== ENCOUNTER 2017-04-01 02:29 | Inpatient (IN) ==
[2017-04-01] MEDS ORDERED: ONDANSETRON 4 MG/2 ML VIAL IV STA (03:56)
[2017-04-01] MEDS ORDERED: MORPHINE 2 MG/1 ML SYRINGE ONE ×2 (03:56)
[2017-04-01] MEDS ORDERED: ONDANSETRON 4 MG/2 ML VIAL ONE (03:56)
[2017-04-01] MEDS ORDERED: MORPHINE 2 MG/1 ML SYRINGE IV STA (03:56)
[2017-04-01 03:58] LABS: Basophils # 0.1 10*3/uL (0.0-0.2); Basophils % 0.7 % (0.0-0.8); Eosinophils # 0.1 10*3/uL (0.0-0.87); Eosinophils % 1.8 % (0.00-10.9); Hematocrit 41.3 VOL% (35.7-47.0); Hemoglobin 14.1 GM/DL (12.0-16.0); Immature Granulocytes % 0.7 %; Immature Granulocytes Absolute 0.05 #; Lymphocytes # 1.4 10*3/uL (1.4-4.0); Lymphocytes % 18.8 % (21.3-54.2); Mean Corpuscular HGB Conc 34.1 GM/DL (32-36); Mean Corpuscular Hemoglobin 29 PG (27-34); Mean Corpuscular Volume 84.6 FL (87-102); Monocytes # 0.6 10*3/uL (0.11-0.8); Monocytes % 7.9 % (1.7-12.7); Neutrophils # 5.2 10*3/uL (1.4-7.4); Neutrophils % 70.1 % (38.7-73.9); Platelet Count 204 T/CUMM (130-400); Red Blood Count 4.88 MC/CUMM (3.8-5.5); White Blood Count 7.4 T/CUMM (4-12)
[2017-04-01 04:08] LABS: Albumin 4.5 G/DL (3.4-5.0); Apearance,Urine CLEAR (Clear); Bilirubin,Total 0.5 MG/DL (0.2-1.0); Bilirubin,Urine Negative (Negative); Blood, Urine Negative (Negative); Calcium 9.4 MG/DL (8.5-10.1); Glucose,Urine (UA) >=500 mg/dL (Negative); Ketones,Urine 5 mg/dL (Negative); Nitrite,Urine Negative (Negative); Osmolality,Calculated 282.7 MOS/KG (273-304); Protein,Urine Negative; Squamous Epithelial Cell,Urine Occasional /HPF (0-10); Total Protein 7.6 G/DL (6.4-8.3); Urine Color Straw (Yellow); Urine Specific Gravity 1.011 (1.001-1.035); Urine Urobilinogen < 2.0 EU/DL (0.2-1.0); WBC,Urine <1 /HPF (0-6)
[2017-04-01 04:17] LABS: INR 1.1; PT Patient Result 11.8 SECS; Partial Thromboplastin Time 21.9 SECS (0-40)
[2017-04-01] MEDS ORDERED: ONDANSETRON 4 MG/2 ML VIAL IV PRN (06:21)
[2017-04-01] MEDS: PANTOPRAZOLE 40 MG TABLET PO SCH (09:00)
[2017-04-01] MEDS: MORPHINE 2 MG/1 ML SYRINGE IV PRN ×2 (09:13→14:47)
[2017-04-01] MEDS: DEXTROSE 5% LACTATED RINGERS 1,000 ML IV SCH (09:15)
[2017-04-01] MEDS: PIPERACILLIN/TAZOBACTAM 3,375 MG in SODIUM CHLORIDE 0.9% 100 ML IV SCH ×2 (09:15→17:28)
[2017-04-02] MEDS: PIPERACILLIN/TAZOBACTAM 3,375 MG in SODIUM CHLORIDE 0.9% 100 ML IV SCH ×3 (01:11→16:15)
[2017-04-02] MEDS: DEXTROSE 5% LACTATED RINGERS 1,000 ML IV SCH ×4 (01:12→16:15)
[2017-04-02] MEDS: MORPHINE 2 MG/1 ML SYRINGE IV PRN ×2 (03:43→08:18)
[2017-04-02] MEDS: PANTOPRAZOLE 40 MG TABLET PO SCH (08:25)
[2017-04-02 08:42] LABS: Basophils % 0.4 % (0.0-0.8); Eosinophils # 0.1 10*3/uL (0.0-0.87); Eosinophils % 1.5 % (0.00-10.9); Hematocrit 41.1 VOL% (35.7-47.0); Immature Granulocytes % 0.6 %; Immature Granulocytes Absolute 0.04 #; Lymphocytes # 1.1 10*3/uL (1.4-4.0); Mean Corpuscular HGB Conc 34.1 GM/DL (32-36); Mean Corpuscular Hemoglobin 29 PG (27-34); Mean Corpuscular Volume 84.9 FL (87-102); Mean Platelet Volume 11.3 FL (9.6-12.0); Monocytes # 0.5 10*3/uL (0.11-0.8); Monocytes % 6.9 % (1.7-12.7); Neutrophils # 4.9 10*3/uL (1.4-7.4); Neutrophils % 73.6 % (38.7-73.9); Platelet Count 191 T/CUMM (130-400); Red Blood Count 4.84 MC/CUMM (3.8-5.5); Red Cell Distribution Width 12.9 % (9.3-17.3); White Blood Count 6.7 T/CUMM (4-12)
[2017-04-02 08:53] LABS: INR 1.1; PT Patient Result 11.9 SECS
[2017-04-02] MEDS ORDERED: ROCURONIUM 100 MG/10 ML VIAL IV ONE (14:04)
[2017-04-02] MEDS ORDERED: SUCCINYLCHOLINE 200 MG/10 ML VIAL ONE (14:04)
[2017-04-02] MEDS ORDERED: PROPOFOL 200 MG/20 ML VIAL IV ONE (14:04)
[2017-04-02] MEDS ORDERED: ONDANSETRON 4 MG/2 ML VIAL ONE ×2 (14:04→15:11)
[2017-04-02] MEDS ORDERED: LIDOCAINE 1% 5 ML VIAL ONE (14:04)
[2017-04-02] MEDS ORDERED: PHENYLEPHRINE 1 MG/10 ML SYRINGE IV ONE (14:04)
[2017-04-02] MEDS ORDERED: fentaNYL 100 MCG/2 ML VIAL ONE (15:11)
[2017-04-02] MEDS ORDERED: HYOSCYAMINE 0.125 MG TABLET PO PRN (20:35)
[2017-04-02] MEDS ORDERED: ALBUTEROL/IPRATROPIUM 3 ML NEB RESP TX PRN (20:38)
[2017-04-03] MEDS: PIPERACILLIN/TAZOBACTAM 3,375 MG in SODIUM CHLORIDE 0.9% 100 ML IV SCH ×3 (01:42→17:42)
[2017-04-03 07:01] LABS: Basophils % 0.5 % (0.0-0.8); Eosinophils # 0.1 10*3/uL (0.0-0.87); Eosinophils % 1.1 % (0.00-10.9); Hematocrit 37.6 VOL% (35.7-47.0); Hemoglobin 12.9 GM/DL (12.0-16.0); Immature Granulocytes % 0.2 %; Immature Granulocytes Absolute 0.01 #; Lymphocytes # 1.1 10*3/uL (1.4-4.0); Lymphocytes % 16.3 % (21.3-54.2); Mean Corpuscular HGB Conc 34.3 GM/DL (32-36); Mean Corpuscular Hemoglobin 29 PG (27-34); Mean Corpuscular Volume 84.7 FL (87-102); Monocytes # 0.8 10*3/uL (0.11-0.8); Monocytes % 12.6 % (1.7-12.7); Neutrophils # 4.6 10*3/uL (1.4-7.4); Neutrophils % 69.3 % (38.7-73.9); Platelet Count 170 T/CUMM (130-400); Red Blood Count 4.44 MC/CUMM (3.8-5.5); Red Cell Distribution Width 12.8 % (9.3-17.3); White Blood Count 6.6 T/CUMM (4-12)
[2017-04-03 07:30] LABS: Albumin 3.1 G/DL (3.4-5.0); Bilirubin,Total 1.4 MG/DL (0.2-1.0); Calcium 8.4 MG/DL (8.5-10.1); Osmolality,Calculated 276.5 MOS/KG (273-304); Potassium 3.6 MMOL/L (3.5-5.1); Total Protein 5.8 G/DL (6.4-8.3)
[2017-04-03] MEDS: MOMETASONE 220 MCG/PUFF INHALER 14 DOSE INH SCH (09:46)
[2017-04-03] MEDS: LISINOPRIL 10 MG TABLET PO SCH (09:48)
[2017-04-03] MEDS: PANTOPRAZOLE 40 MG TABLET PO SCH (09:48)
[2017-04-03] MEDS ORDERED: LIDOCAINE 1%/EPI INJ 20 ML VIAL ONE (12:58)
[2017-04-03] MEDS ORDERED: TISSUE ADHESIVE 1 EACH APPLICATOR TOP ONE (12:58)
[2017-04-03] MEDS ORDERED: DEXAMETHASONE 10 MG/1 ML VIAL ONE (13:39)
[2017-04-03] MEDS ORDERED: PROPOFOL 200 MG/20 ML VIAL IV ONE (13:39)
[2017-04-03] MEDS ORDERED: ROCURONIUM 100 MG/10 ML VIAL IV ONE (13:39)
[2017-04-03] MEDS ORDERED: LIDOCAINE 1% 5 ML VIAL ONE (13:39)
[2017-04-03] MEDS ORDERED: NEOSTIGMINE 10 MG/10 ML VIAL ONE (13:39)
[2017-04-03] MEDS ORDERED: ONDANSETRON 4 MG/2 ML VIAL ONE (13:39)
[2017-04-03] MEDS ORDERED: GLYCOPYRROLATE 0.4 MG/2 ML VIAL ONE (13:39)
[2017-04-03] MEDS ORDERED: fentaNYL 100 MCG/2 ML VIAL ONE (17:30)
[2017-04-03] MEDS ORDERED: MIDAZOLAM 2 MG/2 ML VIAL ONE (17:30)
[2017-04-03] MEDS ORDERED: SEVOFLURANE 1 UNIT/15 MINUTE INH ONE (17:30)
[2017-04-03] MEDS ORDERED: LACTATED RINGERS 1,000 ML IV ONE (17:32)
[2017-04-03] MEDS: MORPHINE 2 MG/1 ML SYRINGE IV PRN (17:39)
[2017-04-03] MEDS ORDERED: NEBIVOLOL 5 MG TABLET PO SCH (19:00)
[2017-04-04] MEDS: PIPERACILLIN/TAZOBACTAM 3,375 MG in SODIUM CHLORIDE 0.9% 100 ML IV SCH ×2 (00:55→08:49)
[2017-04-04] MEDS: LISINOPRIL 10 MG TABLET PO SCH (08:48)
[2017-04-04] MEDS: PANTOPRAZOLE 40 MG TABLET PO SCH (08:48)
[2017-04-04] MEDS: MOMETASONE 220 MCG/PUFF INHALER 14 DOSE INH SCH (08:50)
[2017-04-04 11:59] VITALS: BP 143/90
== END 2017-04-04 14:30 | disposition home or self-care (01) | DRG 419 ==
LOC: N.ED 02:29 → N.EDINP 06:21 → N.2E 07:37
PROVIDERS: ADMIT Surgery; ATTEND Surgery
PROC: ERCPWSP (ICD-10-PCS; 2017-04-02 12:35)
PROC: LAPCHOL (2017-04-03 13:39)